=== PATIENT | male | born 1955 | race Caucasian/White ===

== ENCOUNTER → 2018-03-20 13:04 | Outpatient (CLI) | payer OTHER, SELFPAY ==
--- NOTE | 2018-03-20 13:06 | DI.MRI.S_ITS ---
PROCEDURE: MR LOWER LEG LT WO CON COMPARISON: None TECHNIQUE: Axial fat-suppressed proton density scanning was obtained through the left calf in addition to axial T1 scanning, in addition to coronal T1 and STIR imaging bilaterally, and also sagittal T1 and STIR imaging targeted to the left lower extremity from the level to the ankle level. INDICATIONS: Possible calf tear FINDINGS: At the junction of the middle and lower thirds of the posterior medial left calf there is an ovoid fluid collection which shows internal mildly elevated T1 and proton density signal characteristics, without identifiable solid mass. Contrast enhancement was not utilized and therefore the quality of visualization is somewhat limited. This appears to represent a focal hematoma/seroma within the intermuscular fascial plane deep to the medial gastrocnemius, with partial tear of the substance of the muscle inferiorly, but without superior retraction of this portion of the gastrocnemius. There is edema within the medial gastrocnemius and also along the subcutaneous fatty soft tissue of the posterior calf, greater medially than laterally. IMPRESSION: Partial-thickness tear of the inferior margin of the medial gastrocnemius muscle at the left calf, with associated ovoid focal hemorrhagic seroma or hematoma measuring up to 3.6 cm oblique AP, 2.5 cm transverse and up to 8.0 cm craniocaudad. Disruption and retraction of the musculature is not present. No underlying solid mass lesion is found nor is there evidence of osseous injury. Dictated by: Morteza Gresham M.D. on 03/20/2018 at 16:25 Approved by: Morteza Gresham M.D. on 03/20/2018 at 16:33
== END ==
PROVIDERS: PCP Student in an Organized Health Care Education/Training Program; Visit Provider Physician Assistant
DX: S86.112A Strain of other muscle(s) and tendon(s) of posterior muscle group at lower leg level, left leg, initial encounter (principal)
CPT/HCPCS: 73718

== ENCOUNTER → 2018-05-21 15:28 | Outpatient (CLI) | payer OTHER, SELFPAY ==
--- NOTE | 2018-05-21 15:29 | DI.RAD.S_ITS ---
PROCEDURE: XR FOOT LT MIN 3V INDICATIONS: midfoot pain with ambulation TECHNIQUE: 3 views of the foot were acquired. COMPARISON: None. FINDINGS: Bones: No fractures or dislocations. No suspicious bony lesions. The bone mineralization is slightly decreased. There is a small plantar calcaneal spur. There may also be a small Achilles spur involving the calcaneus. There are mild to moderate degenerative changes involving the midfoot and forefoot joints. Bony alignment is within normal limits. Soft tissues: Soft tissues overlying the left foot appear to be grossly within normal limits. IMPRESSION: 1. Osteopenia without acute fracture evident. 2. Mild to moderate degenerative changes of the midfoot and forefoot. 2. Small plantar calcaneal spur. Dictated by: Cuong Warner M.D. on 05/21/2018 at 15:25 Approved by: Cuong Warner M.D. on 05/21/2018 at 15:27
== END ==
PROVIDERS: PCP Student in an Organized Health Care Education/Training Program; Visit Provider Physician Assistant
DX: M79.672 Pain in left foot (principal); M19.072 Primary osteoarthritis, left ankle and foot; M77.32 Calcaneal spur, left foot; M85.872 Other specified disorders of bone density and structure, left ankle and foot
CPT/HCPCS: 73630

== ENCOUNTER 2018-06-11 04:08 | Emergency (ER) | payer OTHER, SELFPAY ==
[2018-06-11 04:12] VITALS: BP 155/105; PULSE 83; RESP 20; TEMP 36.8; O2SAT 97; BMI 30.1
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
[2018-06-11] MEDS: MORPHINE 4 MG/ML INJ IV (04:15)
--- NOTE | 2018-06-11 04:18 | DI.CT.S_ITS ---
PROCEDURE: CT ABDOMEN PELVIS W CON INDICATIONS: left lower quadrant abdominal pain, vomiting, normal Bowel movement, history of leukemia TECHNIQUE: After the administration of intravenous contrast, 5 mm thick sections acquired from the diaphragm to the symphysis. 5 mm coronal and sagittal reformats were acquired. For radiation dose reduction, the following was used: automated exposure control, adjustment of mA and/or kV according to patient size. COMPARISON: [facility], CT, ABDOMEN/PELVIS WITH CONTRAST, 08/08/2015, 11:04. FINDINGS: Image quality: Excellent. ABDOMEN: Lung bases: Bibasilar scarring/atelectasis are seen. Calcified granuloma is noted in posterior medial aspect of right lung base. No pleural effusion or pneumothorax. Heart size is normal. Solid organs: Liver is normal in size and enhancement. Mild hepatic steatosis is seen Gallbladder is within normal limits. Biliary system is non dilated. Pancreas enhances normally. Mild splenomegaly is seen, improved since previous study now measures approximately 14.8 cm in length. No adrenal nodules. Bilateral kidneys are normal in size. Moderate prominence of left renal collecting system and left renal pelvis is seen. Dilatation of left proximal to mid ureter is also noted. There is moderate left perinephric fat stranding. 6 mm calcification is noted in left mid to distal ureter. No right-sided renal stone or ureteral stone. No right-sided hydronephrosis. Peritoneum and bowel: Bowel loops demonstrate normal wall thickness and caliber. No free fluid or air. Small hiatal hernia is seen. Appendix is visualized and is within normal limits. Extensive sigmoid diverticulosis is seen, no CT evidence of acute diverticulitis. No free fluid or free air. Nodes and vessels: No retroperitoneal or mesenteric adenopathy by size criteria. Aorta and inferior vena cava are normal in size. Miscellaneous: No ventral hernias. PELVIS: Genitourinary: Bladder wall thickness is normal. Miscellaneous: No inguinal hernias or adenopathy. Bones: No suspicious bony lesions. No vertebral body compression fractures. IMPRESSION: 1. 6 mm left distal ureteral stone with moderate left-sided hydronephrosis and proximal to mid hydroureter. Mild left perinephric fat stranding. 2. No right-sided renal stone hydronephrosis. 3. Normal appendix. Sigmoid diverticulosis with no CT evidence of acute diverticulitis. No free fluid or free air. Small hiatal hernia. 4. Interval decrease in spleen size with mild splenomegaly on current study. Mild hepatic steatosis. No significant discrepancies. Dictated by: Mandeep Bro M.D. on 06/11/2018 at 8:52 Approved by: Mandeep Bro M.D. on 06/11/2018 at 8:56
[2018-06-11] MEDS: ONDANSETRON 4 MG/2 ML INJ IV (04:30)
[2018-06-11] MEDS: MORPHINE 5 MG/ML INJ 4 MG IV (04:32)
[2018-06-11] MEDS: SODIUM CHLORIDE 0.9% 1,000 ML 1000 ML IV ×2 (04:32→05:50)
--- NOTE | 2018-06-11 04:33 | PC.NURSE ---
No change in first morphine given, provider notified, second morphine order received.
[2018-06-11 04:36] LABS: Add Manual Diff / Slide Review NO; Basophils Percent Auto 0.6 % (0-2); Eosinophils Percent Auto 1.2 % (2-4); Hematocrit 49.5 % (41-53); Hemoglobin 17.4 g/dL (13.5-17.5); Lymphocytes Percent Auto 43.4 % (25-40); Mean Corpuscular HGB Conc 35.1 % (30-36); Mean Corpuscular Hemoglobin 30.9 PG (26-34); Mean Corpuscular Volume 88.2 fL (80-100); Monocytes Percent Auto 8.4 % (3-14); Neutrophils Absolute Auto 3600 /uL (1500-7000); Neutrophils Percent Auto 46.4 % (50-75); Platelet Count 135 X10^3/uL (150-400); Red Blood Cell Count 5.61 X10^6/uL (4.5-5.9); Red Cell Distribution Width 12.8 % (11.6-14.8); White Blood Cell Count 7.8 X10^3/uL (4.5-11.0)
[2018-06-11] MEDS: KETOROLAC 60 MG/2 ML VIAL 30 MG IV (04:38)
[2018-06-11] MEDS: LORazepam 2 MG/ML SYRINGE 0.5 MG IV (04:47)
[2018-06-11 04:53] LABS: Alanine Aminotransferase 26 IU/L (21-72); Albumin 4.7 g/dL (3.5-5.0); Albumin Globulin Ratio 1.8 (1.0-2.8); Alkaline Phosphatase 69 U/L (38-126); Aspartate Aminotransferase 20 IU/L (17-59); BUN Creatinine Ratio 15.4 (6-22); Bilirubin Total 1.3 mg/dL (0.2-1.3); Blood Urea Nitrogen 20 mg/dL (9-20); Calcium 9.2 mg/dL (8.4-10.2); Carbon Dioxide 22 mmol/L (22-32); Chloride 108 mmol/L (98-107); Estimated Glomerular Filt Rate 55.6 mL/min (>60); Globulin 2.6 g/dL (1.7-4.1); Glucose 112 mg/dL (80-110); HEMOLYSIS 23 (0-50); Lipase 76 U/L (23-300); Potassium 3.7 mmol/L (3.4-5.1); Sodium 148 mmol/L (137-145); Total Protein 7.3 g/dL (6.3-8.2)
[2018-06-11] MEDS: HYDROMORPHONE 1 MG INJ IV (05:50)
[2018-06-11] MEDS: TAMSULOSIN 0.4 MG CAPSULE PO (05:50)
[2018-06-11 07:00] VITALS: BP 127/90; PULSE 72; RESP 18; O2SAT 99
[2018-06-11 07:42] LABS: Bacteria Urine None Seen
[2018-06-11 07:51] LABS: Culture Indicated Urine Cult Not Indicated; RBC Urine 5-10/HPF (0-5/HPF); WBC Urine 0-1/HPF (0-5/HPF)
[2018-06-11] MEDS: HYDROMORPHONE 1 MG INJ 0.5 MG IV (08:01)
[2018-06-11 08:03] VITALS: BP 137/94; PULSE 89; RESP 18; O2SAT 94
[2018-06-11] MEDS: HYDROCODONE/ACET 5/325 PREPACK 1 BOTTLE MISC (08:30)
[2018-06-11] MEDS: ONDANSETRON 4 MG ODT PREPACK 1 BOTTLE MISC (08:30)
--- NOTE | 2018-06-11 12:50 | PC.NURSE ---
Family returned to ED requesting scripts be called into [facility] . Verbalized understanding that narcotic script could not be called in. Called in both zofran and flomax prescriptions as requested.
== END 2018-06-11 08:33 | disposition home or self-care (01) ==
PROVIDERS: Emergency Medicine; Emergency Provider Emergency Medicine; PCP Student in an Organized Health Care Education/Training Program
DX: N20.0 Calculus of kidney (principal); R10.9 Unspecified abdominal pain
CPT/HCPCS: 36591; 51798; 74177; 80053; 81003; 81015; 83690; 85025; 96361; 96374; 96375; 96376; 99283; 99285; J1170; J1885; J2060; J2270; J2405; Q9967

== ENCOUNTER 2019-05-21 11:34 | Emergency (ER) | payer MEDICARE, BC, SELFPAY ==
[2019-05-21 11:47] VITALS: BP 144/95; PULSE 81; RESP 17; TEMP 36.8; O2SAT 94; BMI 28.7
--- NOTE | 2019-05-21 11:48 | ED_ITS ---
HPI - General Adult General Chief complaint: Altered Mental Status Stated complaint: Confusion Time Seen by Provider: 05/21/19 11:38 Source: patient and EMS Mode of arrival: EMS Limitations: no limitations History of Present Illness HPI narrative: Patient comes emergency department complaining of feeling confused today. He states that he went to the pool as usual this morning and after swimming, he felt as though he was forgetting things that he should remember, such as what he was supposed to do today. Patient states that he did not sleep almost all last night, though he usually sleeps well. He is currently being treated for CLL, but states that this has actually been fairly well controlled and he is not on any new agents. Patient does not use any drugs and drinks a small amount of alcohol only occasionally. Patient denies any recent illness. No cough, shortness of breath, chest pain, or fever. No focal neurologic deficits otherwise. No other complaints at this time. Related Data Home Medications Medication Instructions Recorded Confirmed acalabrutinib 100 mg capsule 100 mg PO Q12H 03/13/18 05/21/19 Vitamin D3 1 cap PO DAILY 05/21/19 escitalopram oxalate 5 mg PO QPM 05/21/19 escitalopram oxalate 10 mg PO QAM 05/21/19 Allergies Allergy/AdvReac Type Severity Reaction Status Date / Time No Known Drug Allergies Allergy Verified 09/06/18 16:07 Review of Systems Constitutional Constitutional: Denies chills, Denies fatigue, Denies fever(s), Denies frequent falls, Denies lethargy and Denies weakness Eyes Eyes: Denies change in vision, Denies eye discharge, Denies irritation and Denies loss of vision ENT Ears, Nose, Mouth, and Throat: Denies change in voice, Denies dizziness, Denies neck pain, Denies sore throat and Denies throat swelling Cardiovascular Cardiovascular: Denies chest pain, Denies irregular heart rhythm, Denies lightheadedness, Denies palpitations, Denies dyspnea, Denies dyspnea on exertion and Denies orthopnea Respiratory Respiratory: Denies cough, Denies dyspnea, Denies dyspnea on exertion and Denies wheezing Gastrointestinal Gastrointestinal: Denies abdominal pain, Denies change in bowel habits, Denies diarrhea, Denies nausea and Denies vomiting Genitourinary Genitourinary: Denies hematuria, Denies flank pain, Denies urinary incontinence and Denies urinary urgency Musculoskeletal Musculoskeletal: Denies back pain, Denies muscle weakness, Denies neck pain, Denies numbness and Denies tingling Integumentary/Breasts Skin/Breast: Denies pruritus, Denies erythema, Denies rash and Denies wounds Neurologic Neurologic: Denies behavioral changes, Reports confusion, Denies dizziness, Brandon es frequent falls, Denies loss of vision, Denies numbness, Denies tingling and Denies weakness Psychiatric Psychiatric: Denies anxiety, Denies behavioral changes, Reports confusion, Denies depression, Denies homicidal ideation and Denies suicidal ideation Endocrine Endocrine: Denies fatigue, Denies flushing and Denies palpitations Hematologic/Lymphatic Hematologic/Lymphatic: Denies easy bruising Allergic/Immunologic Allergic/Immunologic: Denies urticaria, Denies throat swelling and Denies wheezing Patient History Medical History Allergic rhinitis (Chronic) Anxiety (Chronic) Arm fracture, right (Resolved ~1985) CLL (chronic lymphocytic leukemia) (Chronic ~05/2010) Colon polyps (Resolved) Knee pain (Resolved 04/2012) Low testosterone (Chronic) Obstructive sleep apnea (Chronic) Osteopenia (Chronic) Squamous cell carcinoma (Resolved) Surgical History Hx of colonoscopy with polypectomy (Resolved 07/2013) Hx of squamous cell carcinoma excision (Resolved) Family History Father Cancer Mother CLL (chronic lymphocytic leukemia) Social History Smoking Status: Never smoker alcohol intake frequency: 0-2 drinks per day Substance Use Type: does not use Exam Initial Vital Signs Initial Vital Signs: Vital Signs Temperature 98.3 F 05/21/19 11:47 Pulse Rate 81 05/21/19 11:47 Respiratory Rate 17 05/21/19 11:47 Blood Pressure 144/95 H 05/21/19 11:47 Pulse Oximetry 94 05/21/19 11:47 Const General: cooperative and well developed Nutritional Appearance: well nourished Orientation: alert, awake, oriented x3 and not confused HENMT Head: normocephalic and atraumatic Ears: external ears normal Nose: external nose normal and No nasal discharge Face and sinus: face symmetric and No dry mucous membranes Mouth: oral mucosae normal and moist mucous membranes Teeth and gingiva: dentition normal Eyes General: appearance normal, both eyes and all related structures Eyelids: eyelids normal Conjunctivae: conjunctivae normal Sclera: sclerae normal Pupils: PERRL EOM: EOM intact bilaterally Neck Neck: normal visual inspection, trachea midline, No lymphadenopathy, No midline deformity and No JVD Lymphatic: No lymphedema Chest Chest: normal inspection of the chest Resp Effort & Inspection: normal respiratory effort, able to speak in complete sentences, no respiratory distress and no use of accessory muscles Auscultation: clear to auscultation bilaterally, no rales, no rhonchi and no wheezes Cardio Rate: regular rate Rhythm: regular rhythm Heart Sounds: no click, no gallops, no murmurs and no rubs Pulses: normal peripheral pulses GI Inspection: non-distended Palpation: soft, no hepatosplenomegaly, No guarding, No pulsatile mass and No tender Auscultation: normal bowel sounds Back/Spine/Pelvis Back: No CVA tenderness Cervical Spine: cervical ROM normal and No pain with cervical ROM Thoracic/Lumbar Spine: thoracic and lumbar spine normal to inspection Skin General: no rashes or lesions noted, No jaundice and No petechiae Neuro General: alert, awake, oriented (Person and place; can't remember month), gait normal and no focal motor deficits Cranial Nerves: CN's II-XI intact bilaterally Speech: speech normal Gait: normal gait Motor: muscle tone normal throughout and strength 5/5 throughout Sensory Exam: no sensory deficits noted Other: Patient talks very easily and coherently with clear speech. He expresses thoughts that make sense, but repeatedly states that he ?just cannot remember? things that he should remember. Extrem General: full ROM, no clubbing, cyanosis or edema, no pedal edema and no calf tenderness Psych Appearance: well kempt Mental Status: mental status grossly normal Attitude: cooperative Thought Content: normal and suicidality Judgment: judgment good Course Course Course Narrative: Patient was worked up with labs, EKG, and CT scan of the head, all of which were unremarkable. He was given a L of IV fluid and was sent for an MRI of the brain which was also unremarkable. the patient did eat some food in the emergency department and felt little better. I have discussed with the patient and his family that if he does not get good sleep at night, he should scale his workout down so it is not so taxing, and be sure to get a good breakfast. However, the patient's family has also mention that patient has had ongoing memory issues, and I have advised that it may be a good idea to have him see a neurologist. The patient's daughter states she has him scheduled to see a memory specialist in a couple of weeks and I think this is a very good idea to help get to the bottom of the memory issues and confusion issues he has been having. At this time however, the patient is stable and no emergent condition has been identified, and he is stable for discharge home with his family. Orders Ordered: Discontinued Medications Sodium Chloride (Normal Saline 0.9%) 1,000 mls @ 1,000 mls/hr IV BOLUS ONE Stop: 05/21/19 12:46 Last Infusion: 05/21/19 13:29 Dose: 0 mls/hr Documented by: REBECCAARRINGDAY Admin: 05/21/19 12:17 Dose: 1,000 mls/hr Documented by: SHANNA Medical Decision Making Medical Records Medical records reviewed: Yes I reviewed the patient's medical records. Lab Data Lab results reviewed: Yes I reviewed the patient's lab results. Result diagrams: 05/21/19 11:45 05/21/19 11:45 Labs: Lab Results 05/21/19 05/21/19 05/21/19 Range/Units 11:40 11:45 11:45 WBC 6.9 (4.5-11.0) X10^3/uL RBC 5.46 (4.5-5.9) X10^6/uL Hgb 16.8 (13.5-17.5) g/dL Hct 48.7 (41-53) % MCV 89.3 (80-100) fL MCH 30.8 (26-34) PG MCHC 34.5 (30-36) % RDW 13.0 (11.6-14.8) % Plt Count 129 L (150-400) X10^3/uL Neut % (Auto) Not Reportable Lymph % (Auto) Not Reportable [place] % (Auto) Not Reportable Eos % (Auto) Not Reportable Baso % (Auto) Not Reportable Lymph # (Auto) Not Reportable [place] # (Auto) Not Reportable Baso # (Auto) Not Reportable Total Counted 100 Seg Neutrophils % 47.0 (38-70) % Band Neutrophils % 1.0 L (3-7) % Lymphocytes % (Manual) 37.0 (25-45) % Atypical Lymphs % 4.0 H ( - 0) % Monocytes % (Manual) 8.0 (2-11) % Eosinophils % (Manual) 3.0 (2-4) % Neutrophils # (Manual) 3312 (4955-8320) /uL RBC Morphology Normal morphology Sodium 141 (137-145) mmol/L Potassium 3.9 (3.4-5.1) mmol/L Chloride 108 H (98-107) mmol/L Carbon Dioxide 24 (22-32) mmol/L BUN 19 (9-20) mg/dL Creatinine 1.10 (0.66-1.25) mg/dL Estimated GFR > 60.0 (>60) mL/min BUN/Creatinine Ratio 17.3 (6-22) Glucose 103 (80-110) mg/dL Calcium 9.6 (8.4-10.2) mg/dL Total Bilirubin 0.8 (0.2-1.3) mg/dL AST 27 (17-59) IU/L ALT 19 (<50) IU/L Alkaline Phosphatase 89 (38-126) U/L Total Creatine Kinase 134 (55-170) U/L CK-MB (CK-2) 1.40 (<2.37) ng/mL CK-MB (CK-2) Rel Index 1.0 L (1.5-5.0) % Troponin I < 0.012 (0.01-0.034) ng/mL Total Protein 7.4 (6.3-8.2) g/dL Albumin 4.8 (3.5-5.0) g/dL Globulin 2.6 (1.7-4.1) g/dL Albumin/Globulin Ratio 1.8 (1.0-2.8) TSH 3.15 (0.47-4.68) uIU/mL Imaging Data CT scan - head: Radiologist's impression: PROCEDURE: CT HEAD/BRAIN WO CON INDICATIONS: confusion TECHNIQUE: Noncontrast 4.5 mm thick angled axial sections acquired from the foramen magnum to the vertex, with coronal and sagittal reformats. For radiation dose reduction, the following was used: automated exposure control, adjustment of mA and/or kV according to patient size. COMPARISON: [facility], MR, BRAIN WITHOUT CONTRAST, 08/09/2010, 9:16. FINDINGS: Image quality: Excellent. CSF spaces: Basal cisterns are patent. No extra-axial fluid collections. The ventricles are symmetric in size and shape. Brain: No intracranial bleeds or masses. There is cerebral volume loss for age, with resultant ventricular and sulcal prominence. There are periventricular and deep white matter chronic small vessel ischemic changes. There is intracranial internal carotid artery atherosclerosis. Skull and face: Calvarium and visualized facial bones appear intact, without suspicious lesions. Sinuses: Visualized sinuses and mastoids are clear. IMPRESSION: 1. No acute intracranial abnormalities. 2. Cerebral volume loss and chronic microvascular ischemic changes. Dictated by: Forrest Perez M.D. on 05/21/2019 at 12:15 Approved by: Forrest Perez M.D. on 05/21/2019 at 12:18 MRI - head: Radiologist's impression: PROCEDURE: MR HEAD/BRAIN WO CON INDICATIONS: possible stroke TECHNIQUE: Noncontrast axial T1 spin echo, axial T2 fast spin echo, sagittal and axial FLAIR, coronal T2 fast spin echo, axial gradient echo, axial diffusion and ADC through the brain. COMPARISON: [facility], CT, CT HEAD/BRAIN WO CON, 05/21/2019, 11:55. FINDINGS: Image quality: Excellent. CSF Spaces: Basal cisterns are patent. No extra-axial fluid collections. Ventricles are normal in size and shape. Brain: No intracranial masses or hemorrhage. [place]/white matter interface is normal. Brainstem appears normal. There is mild, diffuse cerebral white loss. There are mild periventricular and subcortical white matter chronic microvascular ischemic changes. Diffusion-weighted images demonstrate no acute ischemic insult. No chronic ischemic insults. No abnormal GRE weighted artifact identified in the brain parenchyma. Normal intravascular flow voids are present. Skull and face: Calvarium has normal marrow signal. Orbits appear normal. Sinuses: Mucous retention cyst versus polyp noted in the right maxillary sinus. The mastoids are clear. IMPRESSION: 1. No acute intracranial disease process. 2. No areas of acute or chronic infarction. 3. No cranial hemorrhage. 4. No abnormal intracranial mass or mass effect. 5. Mild, diffuse cerebral volume loss. 6. Mild periventricular and subcortical white matter chronic microvascular ischemic change. Dictated by: Rebecca Mccann MD, PhD on 05/21/2019 at 15:00 Approved by: Rebecca Mccann MD, PhD on 05/21/2019 at 15:13 ECG Data Attestation: I personally reviewed and interpreted this ECG as follows: (See below) Interpretation: Twelve lead EKG performed May 21, 2019 at 11:56 a.m., as follows: Regular ventricular rhythm with a rate of 81 beats per minute OR interval 192 milliseconds QRS duration 104 millisecond QTC interval [address] T wave changes Interpretation: Normal sinus rhythm; pattern consistent with pulmonary disease; left anterior fascicular block; minimal voltage criteria for LVH consider normal variant; no signs of acute ischemia; abnormal EKG as interpreted by ED MD. Discharge Plan Departure Patient Disposition: Home Clinical Impression: Acute confusion Insomnia Qualifiers: Insomnia type: unspecified Qualified Code(s): G47.00 - Insomnia, unspecified Discharge Date/Time: 05/21/19 16:37 Instructions: DI for Altered Mental Status Activity Restrictions/Additional Instructions: Your labs, overall, look good. Your CT scan and MRI do not show evidence of an acute stroke or other brain condition. there is evidence of chronic changes to your brain matter that are most likely due to plaque in the tiny blood vessels of your brain. Please be sure to get plenty of sleep and consider a more relaxed workout if you have not slept well the night before. Please also be sure to get a good meal 1st thing in the morning. There is no evidence of an emergent condition causing your symptoms today. If the symptoms continue, please follow-up with your primary care physician. Prescriptions: No Action acalabrutinib 100 mg capsule 100 mg PO Q12H RF: 0 escitalopram oxalate 10 mg tablet 10 mg PO QAM RF: 0 escitalopram oxalate 10 mg tablet 5 mg PO QPM RF: 0 Vitamin D3 1 cap PO DAILY RF: 0
[2019-05-21 11:54] LABS: Hematocrit 48.7 % (41-53); Hemoglobin 16.8 g/dL (13.5-17.5); Mean Corpuscular HGB Conc 34.5 % (30-36); Mean Corpuscular Hemoglobin 30.8 PG (26-34); Mean Corpuscular Volume 89.3 fL (80-100); Platelet Count 129 X10^3/uL (150-400); Red Blood Cell Count 5.46 X10^6/uL (4.5-5.9); White Blood Cell Count 6.9 X10^3/uL (4.5-11.0)
[2019-05-21 11:59] LABS: Add Manual Diff / Slide Review YES; Alanine Aminotransferase 19 IU/L (<50); Albumin 4.8 g/dL (3.5-5.0); Albumin Globulin Ratio 1.8 (1.0-2.8); Alkaline Phosphatase 89 U/L (38-126); Aspartate Aminotransferase 27 IU/L (17-59); BUN Creatinine Ratio 17.3 (6-22); Bilirubin Total 0.8 mg/dL (0.2-1.3); Blood Urea Nitrogen 19 mg/dL (9-20); Calcium 9.6 mg/dL (8.4-10.2); Carbon Dioxide 24 mmol/L (22-32); Chloride 108 mmol/L (98-107); Creatine Kinase 134 U/L (55-170); Estimated Glomerular Filt Rate > 60.0 mL/min (>60); Globulin 2.6 g/dL (1.7-4.1); Glucose 103 mg/dL (80-110); HEMOLYSIS < 15 (0-50); Potassium 3.9 mmol/L (3.4-5.1); Sodium 141 mmol/L (137-145); Total Protein 7.4 g/dL (6.3-8.2)
[2019-05-21 12:10] VITALS: BP 150/91; PULSE 73; RESP 16; O2SAT 94
[2019-05-21 12:10] LABS: Troponin I < 0.012 ng/mL (0.01-0.034)
[2019-05-21] MEDS: SODIUM CHLORIDE 0.9% 1,000 ML 1000 ML IV (12:17)
[2019-05-21 12:18] LABS: Neutrophils Absolute Manual 3312 /uL (3000-5900); Total Cells Counted 100
[2019-05-21 12:19] LABS: RBC Morphology Normal Morphology
[2019-05-21 13:00] VITALS: BP 148/72; PULSE 59; RESP 17; O2SAT 98
[2019-05-21 13:35] VITALS: BP 150/90; PULSE 59; RESP 17; O2SAT 98
--- NOTE | 2019-05-21 13:54 | DI.MRI.S_ITS ---
PROCEDURE: MR HEAD/BRAIN WO CON INDICATIONS: possible stroke TECHNIQUE: Noncontrast axial T1 spin echo, axial T2 fast spin echo, sagittal and axial FLAIR, coronal T2 fast spin echo, axial gradient echo, axial diffusion and ADC through the brain. COMPARISON: [facility], CT, CT HEAD/BRAIN WO CON, 05/21/2019, 11:55. FINDINGS: Image quality: Excellent. CSF Spaces: Basal cisterns are patent. No extra-axial fluid collections. Ventricles are normal in size and shape. Brain: No intracranial masses or hemorrhage. Martinez/white matter interface is normal. Brainstem appears normal. There is mild, diffuse cerebral white loss. There are mild periventricular and subcortical white matter chronic microvascular ischemic changes. Diffusion-weighted images demonstrate no acute ischemic insult. No chronic ischemic insults. No abnormal GRE weighted artifact identified in the brain parenchyma. Normal intravascular flow voids are present. Skull and face: Calvarium has normal marrow signal. Orbits appear normal. Sinuses: Mucous retention cyst versus polyp noted in the right maxillary sinus. The mastoids are clear. IMPRESSION: 1. No acute intracranial disease process. 2. No areas of acute or chronic infarction. 3. No cranial hemorrhage. 4. No abnormal intracranial mass or mass effect. 5. Mild, diffuse cerebral volume loss. 6. Mild periventricular and subcortical white matter chronic microvascular ischemic change. Dictated by: Rebecca Mccann MD, PhD on 05/21/2019 at 15:00 Approved by: Rebecca Mccann MD, PhD on 05/21/2019 at 15:13
[2019-05-21 14:00] VITALS: BP 123/57; PULSE 61; RESP 19; O2SAT 97
[2019-05-21 15:10] VITALS: BP 128/81; PULSE 83; RESP 21; O2SAT 95
[2019-05-21 15:10] LABS: Thyroid Stimulating Hormone 3.15 uIU/mL (0.47-4.68)
--- NOTE | 2019-05-21 16:24 | PC.NURSE ---
pt awake and alert, speech pattern is less rambling than at arrival, word retrieval is very good but patient still has trouble identifying his age and today's date
== END 2019-05-21 16:37 | disposition home or self-care (01) ==
PROVIDERS: Emergency Provider Emergency Medicine
DX: R41.82 Altered mental status, unspecified (principal); G47.00 Insomnia, unspecified
CPT/HCPCS: 36415; 70450; 70551; 80053; 82550; 82553; 84443; 84484; 85025; 93005; 96360; 99283; 99285

== ENCOUNTER → 2019-05-22 11:34 | Outpatient (CLI) | payer MEDICARE, BC, SELFPAY ==
[2019-05-22 12:38] LABS: Appearance Urine UA CLEAR; Bilirubin Urine UA NEGATIVE (NEGATIVE); Color Urine UA YELLOW; Glucose Urine UA NEGATIVE (Negative); Ketones Urine UA NEGATIVE (NEGATIVE); Leukocyte Esterase Urine UA NEGATIVE (NEGATIVE); Nitrite Urine UA NEGATIVE (Negative); Occult Blood Urine UA NEGATIVE (Negative); Protein Urine UA NEGATIVE (Negative); Specific Gravity Urine UA 1.015 (1.000-1.035); Urobilinogen Urine UA 0.2 E.U./dL (0.2); pH Urine UA 6.5 (4.5-8.0)
[2019-05-22 12:51] LABS: Amorphous Sediment Urine 1+; Bacteria Urine Occasional (0-1); Culture Indicated Urine Cult Not Indicated; RBC Urine 0-1/HPF (0-5/HPF); Squamous Epithelial Cell Urine 0-1 /HPF (0-5/HPF); WBC Urine 0-1/HPF (0-5/HPF)
== END ==
PROVIDERS: Visit Provider Family Medicine
DX: R41.0 Disorientation, unspecified (principal)
CPT/HCPCS: 81001

== ENCOUNTER 2020-03-28 21:35 | Emergency (ER) | payer MEDICARE, BC, SELFPAY ==
[2020-03-28 21:52] VITALS: BP 153/87; PULSE 69; RESP 18; TEMP 36.8; O2SAT 97; BMI 29.7
--- NOTE | 2020-03-28 21:57 | DI.CT.S_ITS ---
PROCEDURE: CT KIDNEY URETER BLADDER (KUB) INDICATIONS: LLQ/flank pain. ? kidney stone TECHNIQUE: Noncontrast 5 mm thick sections acquired from the diaphragms to the symphysis. 5 mm thick coronal and sagittal reformats were then performed. For radiation dose reduction, the following was used: automated exposure control, adjustment of mA and/or kV according to patient size. COMPARISON: [facility], CT, ABDOMEN/PELVIS WITH CONTRAST, 08/08/2015, 11:04. CT, CHEST/ABD/PEL WITH CONTRAST, 03/04/2013, 7:19. [facility], CT, CT ABDOMEN PELVIS W CON, 06/11/2018, 4:23. FINDINGS: Image quality: Excellent. Lung bases: Lung bases are clear. Heart size is normal. Urinary system: There is a 2 mm stone in the inferior pole of the left kidney. There is mild perinephric stranding left kidney. Both kidneys are normal in size. No hydronephrosis. Both ureters appear non-dilated throughout their expected courses. Bladder wall thickness is normal; no calcified bladder stones. Other solid organs: Mild hepatic steatosis. Liver is normal in size. Gallbladder is normal. Pancreas is normal in contours. Spleen is mildly enlarged measuring 13.3 cm in length. No adrenal nodules. Peritoneum and bowel: Unenhanced bowel loops demonstrate normal wall thickness and caliber. There are scattered colonic diverticula. No free fluid or air. Nodes and vessels: No retroperitoneal or mesenteric adenopathy by size criteria. Aorta and inferior vena cava are normal in caliber. Abdominal wall: There is a tiny fat containing umbilical hernia. Pelvis: No free pelvic fluid. No inguinal hernias or adenopathy. Bones: No suspicious bony lesions. No vertebral body compression fractures. Mild degenerative changes in lumbar spine. IMPRESSION: 1. A 2 mm nonobstructing stone in left kidney. No hydronephrosis. 2. Diverticulosis without acute diverticulitis. 3. Mild splenomegaly. No significant discrepancy with the city editor radiology preliminary report. Dictated by: Forrest Perez M.D. on 03/29/2020 at 8:39 Approved by: Forrest Perez M.D. on 03/29/2020 at 8:45
[2020-03-28 22:08] LABS: Add Manual Diff / Slide Review NO; Basophils Absolute Auto 100 /uL (0-100); Eosinophils Absolute Auto 100 /uL (0-450); Eosinophils Percent Auto 2.1 % (2-4); Hematocrit 45.1 % (41-53); Hemoglobin 15.7 g/dL (13.5-17.5); Lymphocytes Absolute Auto 1700 /uL (1100-4500); Mean Corpuscular HGB Conc 34.9 % (30-36); Mean Corpuscular Hemoglobin 31.3 PG (26-34); Mean Corpuscular Volume 89.9 fL (80-100); Monocytes Absolute Auto 500 /uL (0-900); Monocytes Percent Auto 7.2 % (3-14); Neutrophils Absolute Auto 4000 /uL (1500-7000); Neutrophils Percent Auto 62.7 % (50-75); Platelet Count 128 X10^3/uL (150-400); Red Blood Cell Count 5.01 X10^6/uL (4.5-5.9); Red Cell Distribution Width 12.7 % (11.6-14.8); White Blood Cell Count 6.4 X10^3/uL (4.5-11.0)
[2020-03-28 22:19] LABS: Alanine Aminotransferase 28 IU/L (<50); Albumin 4.3 g/dL (3.5-5.0); Albumin Globulin Ratio 1.7 (1.0-2.8); Alkaline Phosphatase 77 U/L (38-126); Aspartate Aminotransferase 32 IU/L (17-59); BUN Creatinine Ratio 19.6 (6-22); Bilirubin Total 0.6 mg/dL (0.2-1.3); Blood Urea Nitrogen 22 mg/dL (9-20); Calcium 9.4 mg/dL (8.4-10.2); Carbon Dioxide 27 mmol/L (22-32); Chloride 107 mmol/L (98-107); Estimated Glomerular Filt Rate > 60.0 mL/min (>60); Globulin 2.6 g/dL (1.7-4.1); Glucose 100 mg/dL (80-110); HEMOLYSIS 15 (0-50); Lipase 101 U/L (23-300); Potassium 3.8 mmol/L (3.4-5.1); Sodium 140 mmol/L (137-145); Total Protein 6.9 g/dL (6.3-8.2)
[2020-03-28] MEDS: SODIUM CHLORIDE 0.9% 1,000 ML 1000 ML IV (22:20)
[2020-03-28] MEDS: KETOROLAC 60 MG/2 ML VIAL 15 MG IV (22:20)
[2020-03-28 22:28] VITALS: BP 141/79; PULSE 66; RESP 16; O2SAT 94
[2020-03-28 23:30] VITALS: BP 128/76; PULSE 65; RESP 16; O2SAT 95
--- NOTE | 2020-03-29 00:13 | ED.ABDPAIN ---
HPI - Abdominal Pain General Chief Complaint: Abdominal Pain Stated Complaint: lwr abdominal pain Time Seen by Provider: 03/28/20 21:46 Source: patient Mode of arrival: Wheelchair Limitations: no limitations History of Present Illness HPI narrative: 65-year-old gentleman with a history of CLL and prior kidney stone requiring intervention presents with 2 hours of left lower quadrant pain radiating from the flank into his pelvis. He notes that he has felt well all day he was active all day, doing quite a bit of lifting without any pain or tenderness. Noted some diarrhea yesterday which is not uncommon for him. He has not noticed any hematuria but does note that the pain he is experiencing the left lower quadrant he is very similar to the pain he experienced with his original kidney stone. Related Data Home Medications Medication Instructions Recorded Confirmed acalabrutinib 100 mg capsule 100 mg PO Q12H 03/13/18 05/21/19 Vitamin D3 1 cap PO DAILY 05/21/19 escitalopram oxalate 10 mg PO QAM 05/21/19 trazodone 50 mg tablet 50 mg PO BEDTIME PRN 12/31/19 12/31/19 Allergies Allergy/AdvReac Type Severity Reaction Status Date / Time No Known Drug Allergies Allergy Verified 09/06/18 16:07 Review of Systems Review of Systems Narrative: Pertinent positive and negative findings as per HPI Remainder of review of systems is otherwise unremarkable for Constitutional: Fevers, chills, weakness ENT: No sore throat, neck pain, ear pain CV: Chest pain, palpitations, dyspnea on exertion Respiratory: Cough, wheeze, dyspnea MS: Muscle weakness, numbness, joint swelling or warmth Skin: Rashes, nonhealing lesions Neuro: Syncope, dizziness, tingling Patient History Medical History Allergic rhinitis (Chronic) Anxiety (Chronic) Arm fracture, right (Resolved ~1985) CLL (chronic lymphocytic leukemia) (Chronic ~05/2010) Colon polyps (Resolved) Kidney stone (Acute) Knee pain (Resolved 04/2012) Low testosterone (Chronic) Obstructive sleep apnea (Chronic) Osteopenia (Chronic) Squamous cell carcinoma (Resolved) Surgical History Hx of colonoscopy with polypectomy (Resolved 07/2013) Hx of squamous cell carcinoma excision (Resolved) Family History Father Cancer Mother CLL (chronic lymphocytic leukemia) Social History Smoking Status: Never smoker Smoking Status: Never smoker alcohol intake frequency: 0-2 drinks per day Alcohol type: beer Substance Use Type: does not use Exam Narrative Exam Narrative: General: Healthy appearing, in no acute distress. Able to give a complete and coherent history. Well-nourished well-developed HEENT: Moist mucous membranes, normal sclera with reactive pupils, Neck: supple Respiratory: Lungs are clear to auscultation, no wheezing no rales no rhonchi. Full and symmetrical air movement Cardiac: Regular rate and rhythm no murmurs no bruits Abdomen: Soft nontender good bowel tones, no flank pain Skin: Warm and dry, no rashes Neurologic: Grossly neurologically intact with no obvious asymmetries or abnormalities Extremities: No trauma, well perfused Psych: Cooperative, appropriate insight and affect Initial Vital Signs Initial Vital Signs: Vital Signs Temperature 98.3 F 03/28/20 21:52 Pulse Rate 69 03/28/20 21:52 Respiratory Rate 18 03/28/20 21:52 Blood Pressure 153/87 H 03/28/20 21:52 Pulse Oximetry 97 03/28/20 21:52 Course Orders Ordered: ED Orders 03/28/20 21:57 CT kidney ureter bladder (KUB) Stat 03/28/20 22:00 Complete Blood Count AUTO DIFF Stat Comprehensive Metabolic Panel Stat Lipase Stat Discontinued Medications Sodium Chloride (Normal Saline 0.9%) 1,000 mls @ 1,000 mls/hr IV BOLUS ONE Stop: 03/28/20 22:55 Last Infusion: 03/28/20 23:07 Dose: 0 mls/hr Documented by: Admin: 03/28/20 22:20 Dose: 1,000 mls/hr Documented by: DIAMOND Ketorolac Tromethamine (Toradol) 15 mg IV NOW ONE Stop: 03/28/20 21:57 Last Admin: 03/28/20 22:20 Dose: 15 mg Documented by: DIAMOND Vital Signs Vital signs: Vital Signs - 8 hr 03/28/20 21:52 Temperature 98.3 F Pulse Rate 69 Respiratory Rate 18 Blood Pressure 153/87 H Pulse Oximetry 97 MDM - Abdominal Pain Medical Records Attestation: I reviewed the patient's medical records. Lab Data Attestation: I reviewed the patient's lab results. Result diagrams: 03/28/20 22:00 03/28/20 22:00 Labs: Lab Results 03/28/20 03/28/20 Range/Units 22:00 22:00 WBC 6.4 (4.5-11.0) X10^3/uL RBC 5.01 (4.5-5.9) X10^6/uL Hgb 15.7 (13.5-17.5) g/dL Hct 45.1 (41-53) % MCV 89.9 (80-100) fL MCH 31.3 (26-34) PG MCHC 34.9 (30-36) % RDW 12.7 (11.6-14.8) % Plt Count 128 L (150-400) X10^3/uL Neut % (Auto) 62.7 (50-75) % Lymph % (Auto) 27.0 (25-40) % [place] % (Auto) 7.2 (3-14) % Eos % (Auto) 2.1 (2-4) % Baso % (Auto) 1.0 (0-2) % Neut # (Auto) 4000 (4238-5006) /uL Lymph # (Auto) 1700 (4300-2504) /uL [place] # (Auto) 500 (0-900) /uL Eos # (Auto) 100 (0-450) /uL Baso # (Auto) 100 (0-100) /uL Sodium 140 (137-145) mmol/L Potassium 3.8 (3.4-5.1) mmol/L Chloride 107 (98-107) mmol/L Carbon Dioxide 27 (22-32) mmol/L BUN 22 H (9-20) mg/dL Creatinine 1.12 (0.66-1.25) mg/dL Estimated GFR > 60.0 (>60) mL/min BUN/Creatinine Ratio 19.6 (6-22) Glucose 100 (80-110) mg/dL Calcium 9.4 (8.4-10.2) mg/dL Total Bilirubin 0.6 (0.2-1.3) mg/dL AST 32 (17-59) IU/L ALT 28 (<50) IU/L Alkaline Phosphatase 77 (38-126) U/L Total Protein 6.9 (6.3-8.2) g/dL Albumin 4.3 (3.5-5.0) g/dL Globulin 2.6 (1.7-4.1) g/dL Albumin/Globulin Ratio 1.7 (1.0-2.8) Lipase 101 (23-300) U/L Point of care testing: Urine Dip Bedside Urine Glucose Negative Bedside Urine Bilirubin - Negative Bedside Urine Ketone - Negative Urine Specific [place] 1.025 Bedside Urine Occult Blood - Negative Bedside Urine Protein - Negative Bedside Urine Urobilinogen - Negative Bedside Urine Nitrite - Negative Bedside Urine Leukocytes - Negative Esterase MDM Narrative Medical decision making narrative: Labs in urine or reassuring. CT scan shows nephrolithiasis in the left kidney but no hydronephrosis. No evidence of diverticulitis or masses, urinary tract infection is not identified. Patient is feeling well after Toradol. Most likely diagnosis at this time is musculoskeletal pain resolved with Toradol. Patient is safe for home discharge Discharge Plan Departure Patient Disposition: Home Clinical Impression: Kidney stone, Acute flank pain Instructions: DI for Kidney Stones Activity Restrictions/Additional Instructions: Thank you for coming in today You do have a 2 mm kidney stone that is not causing any acute pain or problems. Is still in your kidney and there is no evidence of a stone stuck and the ureter (the tube running from the kidneys to the bladder). It is possible that you had some very tiny kidney stones or gravel that you passed successfully that we see no evidence of on the CT scan. It is also entirely possible that the pain that you are experiencing was more musculoskeletal which is why the Toradol that you are given with so effective. At this point your pain-free and I have found no other evidence of infection, diverticulitis, masses tumors or alternate explanation for your pain. It is safe for you to go home. If you have worsening symptoms you are welcome to return and I am happy to re-evaluate. Prescriptions: No Action acalabrutinib 100 mg capsule 100 mg PO Q12H RF: 0 escitalopram oxalate 10 mg tablet 10 mg PO QAM RF: 0 Vitamin D3 1 cap PO DAILY RF: 0 trazodone 50 mg tablet 50 mg PO BEDTIME PRNRF: 0 Referrals: Carrie Garduno, DO [Primary Care Provider] -
[2020-03-29 00:30] VITALS: BP 135/76; PULSE 65; RESP 16; O2SAT 96
== END 2020-03-29 00:44 | disposition home or self-care (01) ==
PROVIDERS: Emergency Provider Emergency Medicine; PCP Family Medicine
DX: N20.0 Calculus of kidney (principal); Z87.442 Personal history of urinary calculi; R19.7 Diarrhea, unspecified
CPT/HCPCS: 36415; 74176; 80053; 81003; 83690; 85025; 96361; 96374; 99284; J1885

== ENCOUNTER → 2020-04-10 15:07 | Outpatient (CLI) | payer MEDICARE, BC, SELFPAY ==
[2020-04-12 02:12] LABS: COVID19 Sendout Not Detected (Not Detect)
== END ==
PROVIDERS: PCP Family Medicine; Visit Provider Student in an Organized Health Care Education/Training Program
DX: Z11.59 Encounter for screening for other viral diseases (principal)
CPT/HCPCS: 87635

== ENCOUNTER 2020-04-13 07:05 | Day surgery (SDC) | payer MEDICARE, BC, SELFPAY ==
[2020-04-13 07:25] VITALS: BP 119/80; PULSE 72; RESP 15; TEMP 36.5; O2SAT 96; BMI 30.1
[2020-04-13] MEDS: PROPARACAINE 0.5% OPHTH SOL 2 DROPS EYE-OP (07:37)
[2020-04-13] MEDS: CATARACT EYE COMPOUND (10 DROPS/SYRINGE) 3 DROPS EYE-OP (07:38)
--- NOTE | 2020-04-13 08:07 | PM.PREOP ---
Pre-operative Note Interval Note History & Physical reviewed/Exam performed by Physician: Yes Changes to H&P: No
--- NOTE | 2020-04-13 08:07 | PM.OP.1 ---
Operative Date/Time/Diagnoses Pre-op diagnosis: Nuclear cataract right eye Procedure & Clinicians Procedure: Cataract Surgery Same procedure as scheduled: Yes Surgeon: Cristo Tompkins Anesthesia Type: MAC +/- and Sedation Operative Notes Procedure in detail: Patient brought to the operating suite. Tetracaine drops placed in the right eye. Patient was prepped and draped in sterile manner. Wire lid speculum was placed in the eye. Betadine drops were placed on the eye. This was irrigated. Lidocaine jelly was placed on the eye. A paracentesis port was created with a side-port blade. 0.1 mL 1% preservative free lidocaine was injected into the anterior chamber. The anterior chamber was deepened with viscoelastic. 2.6 mm keratome was used to create a temporal clear corneal incision. Cystotome and Utrata forceps were used to create continuous tear capsulorrhexis. Balanced salt solution was used to hydro dissect the nucleus. The phacoemulsification handpiece was inserted and the nucleus was removed using the stop and chop technique. The irrigation aspiration handpiece was inserted and the remaining cortex was removed. Anterior chamber was deepened with viscoelastic. An Whitney ZCB00 intraocular lens with a power of 19.0 was injected into the capsular bag. Irrigation aspiration handpiece was inserted and the remaining viscoelastic was removed. Incision was hydrated with balanced salt solution and found to be leak free with pressure with Weck-Huong sponges. 0.1 mL Vigamox injected anterior chamber. 0.3 mL Kenalog 10 mg was injected subconjunctivally. Lid speculum was removed. The patient left the operating room in excellent condition. Complications: none Post-operative Condition: stable Disposition: same day surgery
[2020-04-13] MEDS: PHENYLEPHRINE/LIDOCAINE VIAL (OR) 0.2 ML EYE-OP (08:31)
[2020-04-13] MEDS: TRIAMCINOLONE 50 MG/5 ML VIAL INJ (08:31)
[2020-04-13] MEDS: MOXIFLOXACIN INJ 5 MG/ML VIAL EYE-OP (08:31)
[2020-04-13] MEDS: TETRACAINE 0.5% OPHTH DROPS 4 ML 2 DROPS EYE-OP (08:32)
[2020-04-13] MEDS: CHONDROIDTIN/SOD HYALURONATE 1.05 ML SYRINGE INTRAOCULA (08:32)
[2020-04-13] MEDS: LIDOCAINE JELLY 2% 5 ML 1 APPLIC TOP (08:32)
[2020-04-13] MEDS: BALANCED SALT IRRIG SOLN NO.2 500 ML, EPINEPHrine 1 MG IRR (08:32)
[2020-04-13 08:50] VITALS: BP 117/89; PULSE 79; RESP 18; TEMP 36.6; O2SAT 95
== END 2020-04-13 09:02 | disposition home or self-care (01) ==
PROVIDERS: PCP Family Medicine; Referring Provider Family Medicine; Visit Provider Ophthalmology
PROC: (CPT 66984; principal; 2020-04-13 08:15)
DX: H25.11 Age-related nuclear cataract, right eye (principal); I10 Essential (primary) hypertension; F41.9 Anxiety disorder, unspecified; F32.9 Major depressive disorder, single episode, unspecified; G47.33 Obstructive sleep apnea (adult) (pediatric)
CPT/HCPCS: 66984; J0171; J2250; J3010; J3301

== ENCOUNTER → 2020-04-26 09:48 | Outpatient (CLI) | payer MEDICARE, BC, SELFPAY ==
[2020-04-26 10:33] LABS: COVID19 -Nasal RAPID Negative (Negative)
== END ==
PROVIDERS: PCP Family Medicine; Visit Provider Physician Assistant
DX: Z11.59 Encounter for screening for other viral diseases (principal)
CPT/HCPCS: 87635

== ENCOUNTER 2020-04-27 07:01 | Day surgery (SDC) | payer MEDICARE, BC, SELFPAY ==
[2020-04-27] MEDS: CATARACT EYE COMPOUND (10 DROPS/SYRINGE) 3 DROPS EYE-OP (07:23)
[2020-04-27] MEDS: PROPARACAINE 0.5% OPHTH SOL 2 DROPS EYE-OP (07:23)
[2020-04-27 07:27] VITALS: BP 117/77; PULSE 77; RESP 16; TEMP 36.6; O2SAT 97; BMI 30.1
--- NOTE | 2020-04-27 08:03 | P.OP_ITS ---
Operative Date/Time/Diagnoses Pre-op diagnosis: Nuclear Cataract Left eye Post-op diagnosis: same Procedure & Clinicians Same procedure as scheduled: Yes Surgeon: Cristo Tompkins Anesthesia Type: MAC +/- and Sedation Operative Notes Procedure in detail: Patient brought to the operating suite. Tetracaine drops placed in the left eye. Patient was prepped and draped in sterile manner. Wire lid speculum was placed in the eye. Betadine drops were placed on the eye. This was irrigated. Lidocaine jelly was placed on the eye. A paracentesis port was created with a side-port blade. 0.1 mL 1% preservative free lidocaine was injected into the anterior chamber. The anterior chamber was deepened with viscoelastic. 2.6 mm keratome was used to create a temporal clear corneal incision. Cystotome and Utrata forceps were used to create continuous tear capsulorrhexis. Balanced salt solution was used to hydro dissect the nucleus. The phacoemulsification handpiece was inserted and the nucleus was removed using the stop and chop technique. The irrigation aspiration handpiece was inserted and the remaining cortex was removed. Anterior chamber was deepened with viscoe lastic. An Whitney ZCB00 intraocular lens with a power of 19.0 was injected into the capsular bag. Irrigation aspiration handpiece was inserted and the remaining viscoelastic was removed. Incision was hydrated with balanced salt solution and found to be leak free with pressure with Weck-Huong sponges. 0.1 mL Vigamox injected anterior chamber. 0.3 mL Kenalog 10 mg was injected subconjunctivally. Lid speculum was removed. The patient left the operating room in excellent condition. Complications: none Post-operative Condition: stable Disposition: same day surgery
--- NOTE | 2020-04-27 08:03 | PM.PREOP ---
Pre-operative Note Interval Note History & Physical reviewed/Exam performed by Physician: Yes Changes to H&P: No
[2020-04-27] MEDS: TETRACAINE 0.5% OPHTH DROPS 4 ML 2 DROPS EYE-OP (08:22)
[2020-04-27] MEDS: PHENYLEPHRINE/LIDOCAINE VIAL (OR) 0.2 ML EYE-OP (08:22)
[2020-04-27] MEDS: CHONDROIDTIN/SOD HYALURONATE 1.05 ML SYRINGE INTRAOCULA (08:22)
[2020-04-27] MEDS: LIDOCAINE JELLY 2% 5 ML 1 APPLIC TOP (08:22)
[2020-04-27] MEDS: MOXIFLOXACIN INJ 5 MG/ML VIAL EYE-OP (08:22)
[2020-04-27] MEDS: BALANCED SALT IRRIG SOLN NO.2 500 ML, EPINEPHrine 1 MG IRR (08:23)
[2020-04-27] MEDS: TRIAMCINOLONE 50 MG/5 ML VIAL INJ (08:23)
[2020-04-27 08:40] VITALS: BP 124/78; PULSE 78; RESP 16; TEMP 36.4; O2SAT 94
== END 2020-04-27 08:51 | disposition home or self-care (01) ==
PROVIDERS: PCP Family Medicine; Referring Provider Ophthalmology; Visit Provider Ophthalmology
PROC: (CPT 66984; principal; 2020-04-27 08:15)
DX: H25.12 Age-related nuclear cataract, left eye (principal); I10 Essential (primary) hypertension; F41.9 Anxiety disorder, unspecified; F32.9 Major depressive disorder, single episode, unspecified; I49.9 Cardiac arrhythmia, unspecified
CPT/HCPCS: 66984; J0171; J2250; J3010; J3301

== ENCOUNTER 2020-06-24 18:52 | Emergency (ER) | payer MEDICARE, BC, SELFPAY ==
[2020-06-24 18:56] VITALS: BP 141/88; PULSE 94; RESP 16; TEMP 37; O2SAT 96; BMI 32.3
--- NOTE | 2020-06-24 19:27 | DI.RAD.S_ITS ---
PROCEDURE: XR RIBS RT MIN 3V W CXR 1V INDICATIONS: GLF TECHNIQUE: 2 views of the right ribs were acquired, along with a single view chest. COMPARISON: [facility], CR, XR SHOULDER RT MIN 2V, 06/24/2020, 19:29. FINDINGS: Surgical changes and devices: None. Bones and chest wall: The right lateral 5th rib fracture seen by shoulder film is not well seen on the current examination. No suspicious bony lesions. Overlying soft tissues appear unremarkable. Lungs and pleura: No pleural effusions or pneumothorax. Lungs appear clear. Mediastinum: Mediastinal contours appear normal. Heart size is normal. IMPRESSION: Right lateral 5th rib fracture seen by shoulder film is not well seen on the current examination. Dictated by: Juana Murcia M.D. on 06/24/2020 at 19:55 Approved by: Juana Murcia M.D. on 06/24/2020 at 19:56
--- NOTE | 2020-06-24 19:28 | DI.RAD.S_ITS ---
PROCEDURE: XR SHOULDER RT MIN 2V INDICATIONS: GLF TECHNIQUE: 3 views of the shoulder were acquired. COMPARISON: [facility], CR, XR RIBS RT MIN 3V W CXR 1V, 06/24/2020, 19:29. FINDINGS: Bones: Mild bony offset involves the right lateral 5th rib. No suspicious bony lesions. Visualized ribs appear intact. Periarticular osteophyte formation at the acromioclavicular and glenohumeral joints. Soft tissues: No suspicious soft tissue calcifications. IMPRESSION: 1. Right 5th rib fracture. 2. No evidence of shoulder fracture. Dictated by: Juana Murcia M.D. on 06/24/2020 at 19:54 Approved by: Juana Murcia M.D. on 06/24/2020 at 19:55
--- NOTE | 2020-06-24 20:04 | ED.FALL ---
HPI - Fall General Chief Complaint: Fall Stated Complaint: rt shoulder injury Time Seen by Provider: 06/24/20 19:03 Mode of arrival: Wheelchair History of Present Illness HPI Narrative: 65-year-old male nonsmoker with noncontributory medical history presents with his in the chief complaint of a slip and fall in which he landed on his right shoulder and ribs in now has pain with range of motion. He denies any head neck or back pain. He has full recall. He denies any loss of consciousness nor the use of blood thinners. He states that he has significant pain with range of motion of his right arm at the shoulder but denies any numbness, tingling or weakness. He initially denies any pain in his elbow but as the visit goes he admits to pain hears well. He denies any numbness, tingling or weakness. He has significant, sharp and stabbing pain in his right lateral ribs which is made worse with deep breaths and motion. He was hiking with his in slipped on the ground and landed with pain MD complaint: fall Fall from: standing Fall witnessed: yes, by family Place fall occurred: other Loss of consciousness: none Prolonged down time: no Symptoms prior to fall: none Context: tripped/slipped Location of injury - extremities: Right: shoulder and elbow Severity: moderate Quality: burning and sharp Associated symptoms (after fall): chest pain (Right lateral ribs) Related Data Home Medications Medication Instructions Recorded Confirmed acalabrutinib 100 mg capsule 100 mg PO Q12H 03/13/18 06/07/20 escitalopram oxalate 10 mg PO QAM 05/21/19 06/07/20 trazodone 50 mg tablet 50 mg PO BEDTIME PRN 12/31/19 04/27/20 Previous Rx's Medication Instructions Recorded hydrocodone-acetaminophen 1 tab PO Q4-6H PRN #20 tab 06/24/20 Allergies Allergy/AdvReac Type Severity Reaction Status Date / Time house dust Allergy Mild sneezing, Verified 06/24/20 18:56 runny nose hay Allergy Mild sneezing, Uncoded 06/07/20 14:38 runny nose Review of Systems Constitutional Constitutional: Denies chills, Denies fatigue, Denies fever(s), Denies frequent falls, Denies lethargy and Denies weakness Eyes Eyes: Denies change in vision, Denies eye discharge, Denies irritation and Denies loss of vision ENT Ears, Nose, Mouth, and Throat: Denies change in voice, Denies dizziness, Denies neck pain, Denies sore throat and Denies throat swelling Cardiovascular Cardiovascular: Reports chest pain, Denies irregular heart rhythm, Denies lightheadedness, Denies palpitations, Denies dyspnea, Denies dyspnea on exertion and Denies orthopnea Respiratory Respiratory: Denies cough, Reports pain on inspiration, Denies dyspnea, Denies dyspnea on exertion and Denies wheezing Gastrointestinal Gastrointestinal: Denies abdominal pain, Denies change in bowel habits, Denies diarrhea, Denies nausea and Denies vomiting Musculoskeletal Musculoskeletal: Reports back pain, Reports arthralgias, Reports limited range of motion, Denies neck pain and Denies numbness Integumentary/Breasts Skin/Breast: Denies pruritus, Denies erythema, Denies rash and Denies wounds Neurologic Neurologic: Denies behavioral changes, Denies confusion, Denies dizziness, Denies frequent falls, Denies loss of vision, Denies numbness and Denies weakness Psychiatric Psychiatric: Denies anxiety, Denies behavioral changes, Denies confusion, Denies depression, Denies homicidal ideation and Denies suicidal ideation Endocrine Endocrine: Denies fatigue, Denies flushing and Denies palpitations Hematologic/Lymphatic Hematologic/Lymphatic: Denies easy bruising Allergic/Immunologic Allergic/Immunologic: Denies urticaria, Denies throat swelling and Denies wheezing Patient History Medical History Allergic rhinitis Anxiety Arm fracture, right (~1985) CLL (chronic lymphocytic leukemia) (~05/2010) Colon polyps Kidney stone Knee pain (04/2012) Low testosterone Obstructive sleep apnea Osteopenia Squamous cell carcinoma Surgical History Hx of colonoscopy with polypectomy (07/2013) Hx of squamous cell carcinoma excision Family History Father Cancer Hypertension Depression Anxiety Mother CLL (chronic lymphocytic leukemia) Loud snoring Restless leg Hypertension Family/Other Sleep apnea Restless leg Social History household members: spouse Smoking Status: Never smoker alcohol intake: current Smoking Status: Never smoker alcohol intake frequency: holidays/special occasions only Alcohol type: beer Substance Use Type: does not use Exam Narrative Exam Narrative: GENERAL: [65] year old patient appears stated age. Well-nourished, well-developed patient, in mild distress. GCS 15 HEAD: Atraumatic. Normocephalic. EYES: Pupils equal round and reactive. Extraocular motions intact. No scleral icterus. No injection or drainage. ENT: Nose without bleeding, purulent drainage. Throat without erythema, tonsillar hypertrophy or exudate. Airway patent. NECK: Trachea midline. Non tender CARDIOVASCULAR: Regular rate and rhythm without murmurs, gallops, or rubs. Sharp pinpoint, reproducible pain on R lateral ribs RESPIRATORY: Clear to auscultation. Breath sounds equal bilaterally. No wheezes, rales, or rhonchi. GASTROINTESTINAL: Abdomen soft, non-tender, nondistended. EXTREMITIES: Decreased range of motion secondary to pain at shoulder and elbow. No obvious deformity, closed, isolated and neurovascularly intact. BACK: Nontender without deformity or crepitance. No flank tenderness. NEURO: AOx3. SKIN: No rash or erythema of visible areas Initial Vital Signs Initial Vital Signs: Vital Signs Temperature 98.6 F 06/24/20 18:56 Pulse Rate 94 H 06/24/20 18:56 Respiratory Rate 16 06/24/20 18:56 Blood Pressure 141/88 H 06/24/20 18:56 Pulse Oximetry 96 06/24/20 18:56 Procedures Orthopedic Splinting/Casting Injury #1: Side: right Upper Extremity Injury Location: shoulder Upper Extremity Immobilizer: sling/shoulder immobilizer Post splinting neuro exam: intact Post splinting vascular exam: intact Placed by: Nursing Course Orders Ordered: Discontinued Medications Hydrocodone Bitart/Acetaminophen (Hydrocodone/Acet 5/325 Prepack) 1 bottle MISC SEEINSTR ONE Stop: 06/24/20 20:44 Last Admin: 06/24/20 20:47 Dose: 1 bottle Documented by: TIM Vital Signs Vital signs: Vital Signs - 8 hr 06/24/20 18:56 Temperature 98.6 F Pulse Rate 94 H Respiratory Rate 16 Blood Pressure 141/88 H Pulse Oximetry 96 MDM - Fall Imaging Data L Spine: Radiologist's Impression: Morteza Ramírez 65 M [address] [id number] ReportSigned Patient: Morteza Ramírez R#: [id number]: 1955t:[id number]/Sex: 65 / MDate of Service: 06/24/20Loc: EDAccession Number: [id number] Procedure: XR lumbar spine 2-3V Ordering Provider: Wilfredo East D.O. PROCEDURE: XR LUMBAR SPINE 2-3V INDICATIONS: midline bony pain TECHNIQUE: 3 views of the lumbar spine were acquired. COMPARISON: None. FINDINGS: Bones: 5 [id number] vertebrae are present. There is normal bony alignment. No vertebral body compression fractures. No suspicious bony lesions. Soft tissues: Overlying bowel gas pattern is normal. No suspicious soft tissue calcifications. IMPRESSION: No acute fracture. No osseous lesion. If symptoms and/or clinical suspicion for pathology persist, further assessment with repeat, or advanced imaging (e.g., CT, MRI, or bone scan) may be helpful for further assessment. Dictated by: Juana Murcia M.D. on 06/24/2020 at 20:40 Approved by: Juana Murcia M.D. on 06/24/2020 at 20:40 Elbow Xray / Shoulder Xray: Radiologist's Impression: Morteza Ramírez 65 M [address] [id number] ReportSigned Patient: Morteza Ramírez R#: [id number]: [id number]/Sex: 65 / MDate of Service: 06/24/20Loc: EDAccession Number: [id number] Procedure: XR elbow RT min 3V Ordering Provider: Wilfredo East D.O. PROCEDURE: XR ELBOW RT MIN 3V INDICATIONS: fall with elbow pain TECHNIQUE: 3 views of the elbow were acquired. COMPARISON: None. FINDINGS: Bones: No fractures or dislocations. No suspicious bony lesions. Soft tissues: No elbow joint effusion. No suspicious soft tissue calcifications. IMPRESSION: No acute fracture. No osseous lesion. If symptoms and/or clinical suspicion for pathology persist, further assessment with repeat, or advanced imaging (e.g., CT, MRI, or bone scan) may be helpful for further assessment. Dictated by: Juaan Murcia M.D. on 06/24/2020 at 20:24 Approved by: Juana Murcia M.D. on 06/24/2020 at 20:24 Morteza Ramírez Shaw 65 M [address] [id number] ReportSigned Patient: Morteza Ramírez LMR#: [id number]: 1955cct:[id number]/Sex: 65 / MDate of Service: 06/24/20Loc: EDAccession Number: [id number] Procedure: XR shoulder RT min 2V Ordering Provider: Wilfredo East D.O. PROCEDURE: XR SHOULDER RT MIN 2V INDICATIONS: GLF TECHNIQUE: 3 views of the shoulder were acquired. COMPARISON: [facility], CR, XR RIBS RT MIN 3V W CXR 1V, 06/24/2020, 19:29. FINDINGS: Bones: Mild bony offset involves the right lateral 5th rib. No suspicious bony lesions. Visualized ribs appear intact. Periarticular osteophyte formation at the acromioclavicular and glenohumeral joints. Soft tissues: No suspicious soft tissue calcifications. IMPRESSION: 1. Right 5th rib fracture. 2. No evidence of shoulder fracture. Dictated by: Juana Murcia M.D. on 06/24/2020 at 19:54 Approved by: Juana Murcia M.D. on 06/24/2020 at 19:55 Chest x-ray: Radiologist's Impression: [address] [id number] ReportSigned Patient: Morteza Ramírez LMR#: [id number]: 1955cct:[id number]/Sex: 65 / MDate of Service: 06/24/20Loc: EDAccession Number: [id number] Procedure: XR ribs RT min 3V w CXR1V Ordering Provider: Wilfredo East D.O. PROCEDURE: XR RIBS RT MIN 3V W CXR 1V INDICATIONS: GLF TECHNIQUE: 2 views of the right ribs were acquired, along with a single view chest. COMPARISON: [facility], CR, XR SHOULDER RT MIN 2V, 06/24/2020, 19:29. FINDINGS: Surgical changes and devices: None. Bones and chest wall: The right lateral 5th rib fracture seen by shoulder film is not well seen on the current examination. No suspicious bony lesions. Overlying soft tissues appear unremarkable. Lungs and pleura: No pleural effusions or pneumothorax. Lungs appear clear. Mediastinum: Mediastinal contours appear normal. Heart size is normal. IMPRESSION: Right lateral 5th rib fracture seen by shoulder film is not well seen on the current examination. Dictated by: Juana Murcia M.D. on 06/24/2020 at 19:55 Approved by: Juana Murcia M.D. on 06/24/2020 at 19:56 Discharge Plan Departure Patient Disposition: Home Clinical Impression: Closed rib fracture Qualifiers: Encounter type: initial encounter Rib fracture type: single rib Laterality: right Qualified Code(s): S22.31XA - Fracture of one rib, right side, initial encounter for closed fracture Fall Qualifiers: Encounter type: initial encounter Qualified Code(s): W19.XXXA - Unspecified fall, initial encounter Acute lumbar myofascial strain Qualifiers: Encounter type: initial encounter Qualified Code(s): S39.012A - Strain of muscle, fascia and tendon of lower back, initial encounter Sprain of right shoulder Qualifiers: Encounter type: initial encounter Shoulder sprain type: unspecified sprain Qualified Code(s): S43.401A - Unspecified sprain of right shoulder joint, initial encounter Instructions: DI for Rib Fracture Activity Restrictions/Additional Instructions: *You have been diagnosed with [fall with right rib fracture, shoulder sprain, elbow contusion, back pain] *What to do: *Take medications as directed: Hydrocodone was sent to [facility] *Follow up with your primary care provider in 2-3 days, call for an appointment. Let them know you were seen in the Emergency Department and that we ask that you be seen in follow up *Return to ER if you should have any new, worsening or concerning symptoms Prescriptions: New hydrocodone-acetaminophen 5-325 mg tablet 1 tab PO Q4-6H PRN (Reason: pain) Qty: 20 RF: 0 No Action acalabrutinib 100 mg capsule 100 mg PO Q12H RF: 0 escitalopram oxalate 10 mg tablet 10 mg PO QAM RF: 0 trazodone 50 mg tablet 50 mg PO BEDTIME PRN (Reason: Pain (Scale Score 1-3)) RF: 0 Referrals: Carrie Gadruno DO [Primary Care Provider] -
--- NOTE | 2020-06-24 20:15 | DI.RAD.S_ITS ---
PROCEDURE: XR LUMBAR SPINE 2-3V INDICATIONS: midline bony pain TECHNIQUE: 3 views of the lumbar spine were acquired. COMPARISON: None. FINDINGS: Bones: 5 [id number] vertebrae are present. There is normal bony alignment. No vertebral body compression fractures. No suspicious bony lesions. Soft tissues: Overlying bowel gas pattern is normal. No suspicious soft tissue calcifications. IMPRESSION: No acute fracture. No osseous lesion. If symptoms and/or clinical suspicion for pathology persist, further assessment with repeat, or advanced imaging (e.g., CT, MRI, or bone scan) may be helpful for further assessment. Dictated by: Juana Murcia M.D. on 06/24/2020 at 20:40 Approved by: Juana uMrcia M.D. on 06/24/2020 at 20:40
[2020-06-24] MEDS: HYDROCODONE/ACET 5/325 PREPACK 1 BOTTLE MISC (20:47)
[2020-06-24 21:02] VITALS: BP 125/78; PULSE 97; RESP 18; O2SAT 94
== END 2020-06-24 21:03 | disposition home or self-care (01) ==
PROVIDERS: Emergency Provider Emergency Medicine; PCP Family Medicine
DX: S22.31XA Fracture of one rib, right side, initial encounter for closed fracture (principal); S39.012A Strain of muscle, fascia and tendon of lower back, initial encounter; S43.401A Unspecified sprain of right shoulder joint, initial encounter; R07.81 Pleurodynia; R07.9 Chest pain, unspecified; W19.XXXA Unspecified fall, initial encounter
CPT/HCPCS: 71101; 72100; 73030; 73080; 99283

== ENCOUNTER → 2020-07-26 08:48 | Outpatient (CLI) | payer MEDICARE, BC, SELFPAY ==
[2020-07-26 12:28] LABS: COVID19 -Nasal RAPID Negative (Negative)
== END ==
PROVIDERS: PCP Family Medicine; Visit Provider Family Medicine Sleep Medicine
DX: Z20.822 Contact with and (suspected) exposure to COVID-19 (principal)
CPT/HCPCS: 87635; C9803

== ENCOUNTER → 2020-08-25 08:36 | Outpatient (CLI) | payer MEDICARE, BC, SELFPAY ==
[2020-08-25 10:47] LABS: COVID19 -Nasal RAPID Negative (Negative)
== END ==
PROVIDERS: PCP Family Medicine; Visit Provider Family Medicine Sleep Medicine
DX: Z20.822 Contact with and (suspected) exposure to COVID-19 (principal); G47.33 Obstructive sleep apnea (adult) (pediatric)
CPT/HCPCS: 87635; 95811

== ENCOUNTER → 2020-09-15 16:02 | Outpatient (CLI) | payer MEDICARE, BC, SELFPAY ==
--- NOTE | 2020-09-15 | DI.RAD.S_ITS ---
PROCEDURE: XR CERVICAL SPINE 2V OR 3V INDICATIONS: PAIN S/P FALL TECHNIQUE: 3 view(s) of the cervical spine were acquired. COMPARISON: None. FINDINGS: Bones: No fractures or dislocations to the T1 level. The lateral masses of C1 appear intact on the odontoid view. No suspicious bony lesions. Soft tissues: No prevertebral soft tissue swelling. IMPRESSION: C5-6 moderately severe degenerative disc disease, partially visualized due to overlying shoulder structures. No subluxation seen. No trauma found. Dictated by: Morteza Gresham M.D. on 09/15/2020 at 17:29 Approved by: Morteza Gresham M.D. on 09/15/2020 at 17:30
--- NOTE | 2020-09-15 | DI.RAD.S_ITS ---
PROCEDURE: XR LUMBAR SPINE 2-3V INDICATIONS: PAIN S/P FALL TECHNIQUE: 3 views of the lumbar spine were acquired. COMPARISON: , CR, XR LUMBAR SPINE 2-3V, 06/24/2020, 20:16. FINDINGS: Bones: 5 [id number] vertebrae are present. There is normal bony alignment. No vertebral body compression fractures. No suspicious bony lesions. Soft tissues: Overlying bowel gas pattern is normal. No suspicious soft tissue calcifications. IMPRESSION: Minimal degenerative disc disease noted at the thoracolumbar junction and along the lumbosacral spine best seen at L4-5. Facet osteoarthritis becomes progressively more prominent from L3 inferiorly and is most pronounced at L4-5 and L5-S1. Subluxation is not associated, however. Dictated by: Morteza Gresham M.D. on 09/15/2020 at 17:31 Approved by: Morteza Gresham M.D. on 09/15/2020 at 17:31
--- NOTE | 2020-09-15 | DI.RAD.S_ITS ---
PROCEDURE: XR SHOULDER RT MIN 2V INDICATIONS: PAIN S/P FALL TECHNIQUE: 3 views of the shoulder were acquired. COMPARISON: [facility], CR, XR SHOULDER RT MIN 2V, 06/24/2020, 19:29. FINDINGS: Bones: No fractures or dislocations. No suspicious bony lesions. Visualized ribs appear intact. Soft tissues: No suspicious soft tissue calcifications. IMPRESSION: [id number] AC joint osteoarthritis. Mild glenohumeral joint degenerative osteoarthritic change. Dictated by: Morteza Gresham M.D. on 09/15/2020 at 17:29 Approved by: Morteza Gresham M.D. on 09/15/2020 at 17:29
--- NOTE | 2020-09-15 | DI.RAD.S_ITS ---
PROCEDURE: XR THORACIC SPINE 3V INDICATIONS: PAIN S/P FALL TECHNIQUE: 3 views of the thoracic spine were acquired. COMPARISON: None. FINDINGS: Bones: No fractures or dislocations. No suspicious bony lesions. 12 pairs of ribs are noted, and appear intact where visualized. Soft tissues: No paravertebral stripe thickening. IMPRESSION: No acute trauma found. Only a mild degree of degenerative disc height reduction is seen along the middle 3rd of the thoracic spine. No compression fracture suspected. Dictated by: Morteza Gresham M.D. on 09/15/2020 at 17:30 Approved by: Morteza Gresham M.D. on 09/15/2020 at 17:30
== END ==
PROVIDERS: PCP Family Medicine; Referring Provider Family Medicine; Visit Provider Family Medicine
DX: M50.322 Other cervical disc degeneration at C5-C6 level (principal); M54.9 Dorsalgia, unspecified; M47.816 Spondylosis without myelopathy or radiculopathy, lumbar region; M47.817 Spondylosis without myelopathy or radiculopathy, lumbosacral region; M25.511 Pain in right shoulder; M19.011 Primary osteoarthritis, right shoulder
CPT/HCPCS: 72040; 72072; 72100; 73030

== ENCOUNTER → 2021-10-24 07:40 | Outpatient (CLI) | payer MEDICARE, OTHER, SELFPAY ==
[2021-10-24 08:51] LABS: Hemoglobin A1C% w Est Avg Glu 4.9 % (4.0-6.0)
[2021-10-24 08:57] LABS: Add Manual Diff / Slide Review YES; Hematocrit 47.6 % (41-53); Hemoglobin 16.6 g/dL (13.5-17.5); Mean Corpuscular HGB Conc 34.8 % (30-36); Mean Corpuscular Volume 88.9 fL (80-100); Platelet Count 136 X10^3/uL (150-400); Red Blood Cell Count 5.35 X10^6/uL (4.5-5.9); Red Cell Distribution Width 13.3 % (11.6-14.8); White Blood Cell Count 9.9 X10^3/uL (4.5-11.0)
[2021-10-24 09:14] LABS: Alanine Aminotransferase 22 IU/L (<50); Albumin 4.2 g/dL (3.5-5.0); Alkaline Phosphatase 62 U/L (38-126); Aspartate Aminotransferase 22 IU/L (17-59); Bilirubin Total 1.2 mg/dL (0.2-1.3); Blood Urea Nitrogen 20 mg/dL (9-20); Calcium 9.2 mg/dL (8.4-10.2); Carbon Dioxide 29 mmol/L (22-32); Chloride 107 mmol/L (98-107); Cholesterol 163 mg/dL (140-199); Estimated Glomerular Filt Rate 59 mL/min (>60); Globulin 2.1 g/dL (1.7-4.1); Glucose 98 mg/dL (80-110); HDL Cholesterol 31 mg/dL (40-60); LDL Cholesterol Calculated 89 mg/dL (<100); Sodium 139 mmol/L (137-145); Total Protein 6.3 g/dL (6.3-8.2); Triglycerides 215 mg/dL (35-150)
[2021-10-24 09:45] LABS: HEMOLYSIS < 15 (0-50); Prostate Specific Antigen Scrn 2.59 ng/mL (0.1-4.0)
[2021-10-24 09:57] LABS: Neutrophils Absolute Manual 3069 /uL (3000-5900); Total Cells Counted 100
[2021-10-24 09:59] LABS: RBC Morphology Normal Morphology
[2021-10-24 10:21] LABS: Folate 4.4 ng/mL (2.76-20.0); Vitamin B12 782 pg/mL (239-931)
[2021-10-24 16:03] LABS: Rubella Antibody IgG > 350.0 IU/mL (>15)
[2021-10-25 07:36] LABS: Rubeola Measles IgG 98.4 AU/mL (Immune >16.4); Varicella IgG Antibody 676 index (Immune >165)
[2021-10-26 10:03] LABS: Mumps Virus IgG Antibody 34.4 AU/mL (Immune >10.9)
== END ==
PROVIDERS: PCP Family Medicine; Referring Provider Family Medicine; Visit Provider Family Medicine
DX: G31.84 Mild cognitive impairment of uncertain or unknown etiology (principal); E29.1 Testicular hypofunction; R41.89 Other symptoms and signs involving cognitive functions and awareness
CPT/HCPCS: 36415; 80053; 80061; 82607; 82746; 83036; 85007; 85025; 86735; 86762; 86765; 86787; G0103

== ENCOUNTER 2022-01-23 15:45 | Emergency (ER) | payer MEDICARE, OTHER, SELFPAY ==
[2022-01-23] VITALS (13 sets, daily range): BP systolic 92–134; BP diastolic 52–85; PULSE 83–111; RESP 21–24; TEMP 37.1; O2SAT 92–96
--- NOTE | 2022-01-23 15:58 | DI.RAD.S_ITS ---
PROCEDURE: XR CHEST 1V INDICATIONS: chest pain TECHNIQUE: One view of the chest was acquired. COMPARISON: [facility], , CHEST 2 VIEW, 06/21/2015, 16:07. FINDINGS: Surgical changes and devices: None. Lungs and pleura: Lungs are clear. No pleural effusions or pneumothorax. Mediastinum: Mediastinal contours appear normal. Heart size is normal. Bones and chest wall: No suspicious bony lesions. Overlying soft tissues appear unremarkable. IMPRESSION: No acute cardiopulmonary disease. Dictated by: Forrest Perez M.D. on 01/23/2022 at 16:21 Approved by: Forrest Perez M.D. on 01/23/2022 at 16:30
[2022-01-23 16:40] LABS: Add Manual Diff / Slide Review NO; Basophils Absolute Auto 0 /uL (0-100); Basophils Percent Auto 0.5 % (0-2); Eosinophils Absolute Auto 0 /uL (0-450); Hematocrit 43.5 % (41-53); Hemoglobin 15.4 g/dL (13.5-17.5); Lymphocytes Absolute Auto 5400 /uL (1100-4500); Lymphocytes Percent Auto 54.3 % (25-40); Mean Corpuscular HGB Conc 35.3 % (30-36); Mean Corpuscular Hemoglobin 31.3 PG (26-34); Mean Corpuscular Volume 88.7 fL (80-100); Monocytes Absolute Auto 1000 /uL (0-900); Monocytes Percent Auto 9.7 % (3-14); Neutrophils Absolute Auto 3500 /uL (1500-7000); Neutrophils Percent Auto 35.5 % (50-75); Platelet Count 91 X10^3/uL (150-400); Red Blood Cell Count 4.91 X10^6/uL (4.5-5.9); Red Cell Distribution Width 12.9 % (11.6-14.8); White Blood Cell Count 9.9 X10^3/uL (4.5-11.0)
[2022-01-23 16:46] LABS: D Dimer < 200 ng/mL (<230)
[2022-01-23 16:50] LABS: Lactate (Lactic Acid) 1.1 mmol/L (0.7-2.1)
[2022-01-23 16:52] LABS: Alanine Aminotransferase 21 IU/L (<50); Albumin 4.1 g/dL (3.5-5.0); Albumin Globulin Ratio 1.6 (1.0-2.8); Alkaline Phosphatase 64 U/L (38-126); Aspartate Aminotransferase 22 IU/L (17-59); BUN Creatinine Ratio 15.1 (6-22); Bilirubin Total 1.7 mg/dL (0.2-1.3); Blood Urea Nitrogen 18 mg/dL (9-20); C-Reactive Protein Quant 3.9 mg/dL (<1.0); Calcium 8.6 mg/dL (8.4-10.2); Carbon Dioxide 24 mmol/L (22-32); Chloride 104 mmol/L (98-107); Creatine Kinase 50 U/L (55-170); Estimated Glomerular Filt Rate > 60 mL/min (>60); Globulin 2.5 g/dL (1.7-4.1); Glucose 107 mg/dL (80-110); HEMOLYSIS < 15 (0-50); Potassium 3.9 mmol/L (3.4-5.1); Sodium 136 mmol/L (137-145); Total Protein 6.6 g/dL (6.3-8.2)
[2022-01-23 16:52] LABS: COVID19 -Nasal RAPID POSITIVE (Negative)
[2022-01-23 17:03] LABS: NT-proBNP (BNP-Adult 18+) 23 pg/mL (<125); Troponin I < 0.012 ng/mL (0.01-0.034)
[2022-01-23 17:07] LABS: Procalcitonin 0.18 ng/mL (<0.5)
[2022-01-23 17:25] LABS: Ferritin 146 ng/mL (18-464)
--- NOTE | 2022-01-23 20:12 | ED_ITS ---
HPI - SOB/Dyspnea General Chief Complaint: Shortness of Breath/Dyspnea Stated Complaint: COVID+ FAST HEART BEAT LOW O2 Time Seen by Provider: 01/23/22 16:01 Source: patient Mode of arrival: Ambulatory History of Present Illness HPI Narrative: Patient here for evaluation of COVID infection. Patient is sent here by urgent care as well as Oncology with [facility]. He has CLL. They are inquiring about Paxlovid. Patient 94% room air. At urgent care saw him today and reported low oxygen. He is in no distress at this time. He is had fever chills cough cold congestion for the past 3 days. He is COVID vaccinated. He is on acalabrutinib. Patient not requiring oxygen at this time. He is in no distress Related Data Home Medications Medication Instructions Recorded Confirmed acalabrutinib 100 mg capsule 100 mg PO Q12H 03/13/18 07/27/21 trazodone 50 mg tablet 50 mg PO BEDTIME PRN Pain (Scale 12/31/19 07/27/21 Score 1-3) ResMed AirCurve 10 07/27/21 07/27/21 Previous Rx's Medication Instructions Recorded nirmatrelvir 300 mg (150 mg x See Rx Instructions PO .COMPLEX 01/23/22 2)-ritonavir 100 mg tablet (EUA) #30 tabs (Paxlovid 300 mg () Allergies Allergy/AdvReac Type Severity Reaction Status Date / Time house dust Allergy Mild sneezing, Verified 07/27/21 10:22 runny nose hay Allergy Mild sneezing, Uncoded 09/02/20 11:05 runny nose Review of Systems Review of Systems Narrative: GENERAL: Positive for chills, fatigue, malaise, fever, sweats. HEENT: Denies sinus pain, ear pain, sore throat RESPIRATORY: Positive for dyspnea, cough CARDIOVASCULAR: Denies chest pain, palpitations GASTROINTESTINAL: Denies nausea, vomiting, abdominal pain : Denies dysuria, frequency, hematuria MUSCULOSKELETAL: Positive for muscle or bony pain SKIN: Denies rash, skin lesions NEUROLOGIC: Denies weakness, numbness ROS Unobtainable: All systems reviewed & are unremarkable except as noted in HPI and below Patient History Medical History Allergic rhinitis Anxiety Arm fracture, right (~1985) CLL (chronic lymphocytic leukemia) (~05/2010) Colon polyps Complex sleep apnea syndrome Excessive daytime sleepiness Insomnia, psychophysiological Kidney stone Knee pain (04/2012) Low testosterone Obstructive sleep apnea, adult Osteopenia Squamous cell carcinoma Surgical History Hx of colonoscopy with polypectomy (07/2013) Hx of squamous cell carcinoma excision Family History Father Cancer Hypertension Depression Anxiety Mother CLL (chronic lymphocytic leukemia) Loud snoring Restless leg Hypertension Family/Other Sleep apnea Restless leg Social History household members: spouse Smoking Status: Never smoker alcohol intake: current Smoking Status: Never smoker alcohol intake frequency: holidays/special occasions only Alcohol type: beer Substance Use Type: does not use Exam Narrative Exam Narrative: GENERAL: in no distress, not toxic not dyspneic HEAD: Normocephalic. EYES: Pupils equal round No scleral icterus. ENT: Mucous membranes moist. NECK: Trachea midline. CARDIOVASCULAR: Regular rate and rhythm without murmurs RESPIRATORY: Clear to auscultation. Breath sounds equal bilaterally. No wheezes, rales, or rhonchi. Speaking full sentences. No respiratory distress. GASTROINTESTINAL: Abdomen soft, non-tender EXTREMITIES: No gross deformities. BACK: No flank tenderness. NEURO: AOx4. SKIN: Warm and dry PSYCH: Not anxious, is cooperative Initial Vital Signs Initial Vital Signs: Vital Signs Temperature 98.7 F 01/23/22 15:49 Pulse Rate 111 H 01/23/22 15:49 Respiratory Rate 24 01/23/22 15:49 Blood Pressure 128/79 01/23/22 15:49 Pulse Oximetry 95 01/23/22 15:49 Oxygen Delivery Method 01/23/22 15:49 Course Course Course Narrative: No new issues during course of stay Orders Ordered: ED Orders 01/23/22 15:53 EKG-12 Lead Routine 01/23/22 15:58 XR chest 1V Stat 01/23/22 16:09 C-Reactive Protein Quant Stat Complete Blood Count AUTO DIFF Stat Comprehensive Metabolic Panel Stat D Dimer Stat Ferritin Stat Lactate (Lactic Acid) Stat NT-proBNP (BNP-Adult 18+) Stat Procalcitonin Stat Troponin & CK Cardiac Panel Stat 01/23/22 16:18 COVID19 -Nasal RAPID/Pre-Proc Stat 01/23/22 16:46 Blood Culture Stat Reevaluation(s) Reevaluation #1: Patient desires COVID medication Paxlovid. Patient does understand it is UA. Experimental. Is cancer doctor has recommended to take it. He understands to hold his cancer medication and trazodone during this treatment. Not toxic at discharge. No dyspnea. Time: 20:52 Consultations Consultation #1: Spoke with [facility] Dr. Yang, patient should start Paxlovid and hold his acalbrutinib 5 days and may resume day 6 but should call office tomorrow for office appointment and confirming resuming his medication. Time: 20:51 Vital Signs Vital signs: Vital Signs - 8 hr 01/23/22 15:49 01/23/22 16:13 01/23/22 16:15 Temperature 98.7 F Pulse Rate 111 H 99 H Respiratory Rate 24 Blood Pressure 128/79 128/83 Pulse Oximetry 95 96 Oxygen Delivery Method Room Air 01/23/22 16:15 01/23/22 16:30 01/23/22 16:30 Temperature Pulse Rate 96 H 89 Respiratory Rate Blood Pressure 120/71 Pulse Oximetry 94 93 Oxygen Delivery Method 01/23/22 17:00 01/23/22 17:00 01/23/22 17:30 Temperature Pulse Rate 88 Respiratory Rate 23 Blood Pressure 101/60 134/70 Pulse Oximetry 92 Oxygen Delivery Method 01/23/22 17:30 01/23/22 18:00 01/23/22 18:00 Temperature Pulse Rate 91 H 91 H Respiratory Rate 21 24 Blood Pressure 133/85 Pulse Oximetry 93 92 Oxygen Delivery Method 01/23/22 18:30 01/23/22 18:30 Temperature Pulse Rate 88 Respiratory Rate Blood Pressure 113/69 Pulse Oximetry 92 Oxygen Delivery Method MDM - SOB/Dyspnea Differential Diagnosis Differential diagnosis: Likely community acquired pneumonia and other (COVID infection) Lab Data Result diagrams: 01/23/22 16:09 01/23/22 16:09 Labs: Lab Results 01/23/22 01/23/22 01/23/22 Range/Units 16:09 16:09 16:09 WBC 9.9 (4.5-11.0) X10^3/uL RBC 4.91 (4.5-5.9) X10^6/uL Hgb 15.4 (13.5-17.5) g/dL Hct 43.5 (41-53) % MCV 88.7 (80-100) fL MCH 31.3 (26-34) PG MCHC 35.3 (30-36) % RDW 12.9 (11.6-14.8) % Plt Count 91 L (150-400) X10^3/uL Neut % (Auto) 35.5 L (50-75) % Lymph % (Auto) 54.3 H (25-40) % [place] % (Auto) 9.7 (3-14) % Eos % (Auto) 0.0 L (2-4) % Baso % (Auto) 0.5 (0-2) % Neut # (Auto) 3500 (1153-2851) /uL Lymph # (Auto) 5400 H (6535-7675) /uL [place] # (Auto) 1000 H (0-900) /uL Eos # (Auto) 0 (0-450) /uL Baso # (Auto) 0 (0-100) /uL D-Dimer < 200 (<230) ng/mL Sodium 136 L (137-145) mmol/L Potassium 3.9 (3.4-5.1) mmol/L Chloride 104 (98-107) mmol/L Carbon Dioxide 24 (22-32) mmol/L BUN 18 (9-20) mg/dL Creatinine 1.19 (0.66-1.25) mg/dL Estimated GFR > 60 (>60) mL/min BUN/Creatinine Ratio 15.1 (6-22) Glucose 107 (80-110) mg/dL Lactate (0.7-2.1) mmol/L Calcium 8.6 (8.4-10.2) mg/dL Ferritin 146 (18-464) ng/mL Total Bilirubin 1.7 H (0.2-1.3) mg/dL AST 22 (17-59) IU/L ALT 21 (<50) IU/L Alkaline Phosphatase 64 (38-126) U/L Total Creatine Kinase 50 L (55-170) U/L CK-MB (CK-2) TNP CK-MB (CK-2) Rel Index TNP Troponin I < 0.012 (0.01-0.034) ng/mL C-Reactive Protein 3.9 H (<1.0) mg/dL NT-Pro-B Natriuret Pep 23 (<125) pg/mL Total Protein 6.6 (6.3-8.2) g/dL Albumin 4.1 (3.5-5.0) g/dL Globulin 2.5 (1.7-4.1) g/dL Albumin/Globulin Ratio 1.6 (1.0-2.8) Procalcitonin 0.18 (<0.5) ng/mL SARS-CoV-2 (PCR) (Negative) 01/23/22 01/23/22 Range/Units 16:09 16:18 WBC (4.5-11.0) X10^3/uL RBC (4.5-5.9) X10^6/uL Hgb (13.5-17.5) g/dL Hct (41-53) % MCV (80-100) fL MCH (26-34) PG MCHC (30-36) % RDW (11.6-14.8) % Plt Count (150-400) X10^3/uL Neut % (Auto) (50-75) % Lymph % (Auto) (25-40) % [place] % (Auto) (3-14) % Eos % (Auto) (2-4) % Baso % (Auto) (0-2) % Neut # (Auto) (2399-8645) /uL Lymph # (Auto) (2168-9593) /uL [place] # (Auto) (0-900) /uL Eos # (Auto) (0-450) /uL Baso # (Auto) (0-100) /uL D-Dimer (<230) ng/mL Sodium (137-145) mmol/L Potassium (3.4-5.1) mmol/L Chloride (98-107) mmol/L Carbon Dioxide (22-32) mmol/L BUN (9-20) mg/dL Creatinine (0.66-1.25) mg/dL Estimated GFR (>60) mL/min BUN/Creatinine Ratio (6-22) Glucose (80-110) mg/dL Lactate 1.1 (0.7-2.1) mmol/L Calcium (8.4-10.2) mg/dL Ferritin (18-464) ng/mL Total Bilirubin (0.2-1.3) mg/dL AST (17-59) IU/L ALT (<50) IU/L Alkaline Phosphatase (38-126) U/L Total Creatine Kinase (55-170) U/L CK-MB (CK-2) CK-MB (CK-2) Rel Index Troponin I (0.01-0.034) ng/mL C-Reactive Protein (<1.0) mg/dL NT-Pro-B Natriuret Pep (<125) pg/mL Total Protein (6.3-8.2) g/dL Albumin (3.5-5.0) g/dL Globulin (1.7-4.1) g/dL Albumin/Globulin Ratio (1.0-2.8) Procalcitonin (<0.5) ng/mL SARS-CoV-2 (PCR) Positive H (Negative) Imaging Data Chest x-ray: Radiologist's Impression: [address] [address] XRay Report Signed Patient: Morteza Ramírez MR#: [id number] : 1955 Acct:[id number] Age/Sex: 67 / M Date of Service: 01/23/22 Loc: ED Accession Number: [id number] ?? Procedure: XR chest 1V Ordering Provider: Brit Briceño D.O. PROCEDURE:? XR CHEST 1V ? INDICATIONS:? chest pain ? TECHNIQUE:? One view of the chest was acquired.? ? COMPARISON:? [facility], , CHEST 2 VIEW, 06/21/2015, 16:07. ? FINDINGS:? ? Surgical changes and devices:? None.? ? Lungs and pleura:? Lungs are clear.? No pleural effusions or pneumothorax.? ? Mediastinum:? Mediastinal contours appear normal.? Heart size is normal.? ? Bones and chest wall:? No suspicious bony lesions.? Overlying soft tissues appear unremarkable.? ? IMPRESSION:? No acute cardiopulmonary disease. ? ? Dictated by: Forrest Perez M.D. on 01/23/2022 at 16:21 ? ? Approved by: Forrest Perez M.D. on 01/23/2022 at 16:30 ? ECG Data Interpretation: Sinus tachycardia rate [address] elevation or depression MDM Narrative Medical decision making narrative: Appropriate for discharge home. Patient not requiring supplemental oxygen. No respiratory distress. He understands this is EUA experience will use administ ration and not approved by FDA. His oncology service has been contacted and recommend him have it. He does desire to have it. Risks and benefits reviewed with him. Allergic reaction not limited to this risk. Return precautions reviewed with him. Not toxic at discharge. Otherwise exam and laboratory studies and imaging are reassuring. Discharge Plan Departure Patient Disposition: Home Clinical Impression: COVID-19 Instructions: DI for COVID-19 (Suspected or Confirmed ) Activity Restrictions/Additional Instructions: You have been prescribed Paxlovid. Please do not take your cancer medication or trazodone while taking this medication. Call your office when to resume your home medication. Return if worse if any trouble breathing. Return if any allergic reaction as discussed. Any swelling or itching or throat swelling or tongue swelling. Stop this medication immediately and go to the emergency department. Prescriptions: New Paxlovid (EUA) 150 mg x 2- 100 mg tablet See Rx Instructions .ROUTE .COMPLEX Qty: 30 0RF Rx Instructions: take TWO 150 mg tablets of nirmatrelvir with ONE 100 mg tablet of ritonavir twice daily for 5 days No Action acalabrutinib 100 mg capsule 100 mg PO Q12H trazodone 50 mg tablet 50 mg PO BEDTIME PRN (Reason: Pain (Scale Score 1-3)) (DME) ResMed AirCurve 10 See Rx Instructions .ROUTE .MEDSUPPLY Rx Instructions: BIPAP IPAP: 16 EPAP: 10 PS: 4cmH2O DME: PHM Referrals: Carrie Garduno DO [Primary Care Provider] - Visit Report Forms: Patient Portal/API
== END 2022-01-23 21:14 | disposition home or self-care (01) ==
PROVIDERS: Emergency Medicine; Emergency Provider Emergency Medicine; PCP Family Medicine
DX: U07.1 COVID-19 (principal); R07.9 Chest pain, unspecified
CPT/HCPCS: 36415; 71045; 80053; 82550; 82728; 83605; 83880; 84145; 84484; 85025; 85379; 86140; 87040; 87635; 93005; 93010; 99284; C9803

== ENCOUNTER → 2022-06-15 11:42 | Outpatient (CLI) | payer MEDICARE, OTHER, SELFPAY ==
[2022-06-15 13:31] LABS: COVID19 -Nasal RAPID Negative (Negative)
== END ==
PROVIDERS: PCP Family Medicine; Visit Provider Surgery
DX: Z20.822 Contact with and (suspected) exposure to COVID-19 (principal); Z01.812 Encounter for preprocedural laboratory examination
CPT/HCPCS: 87635; C9803

== ENCOUNTER 2022-06-16 06:58 | Day surgery (SDC) | payer MEDICARE, OTHER, SELFPAY ==
[2022-06-16 07:28] VITALS: BP 131/91; PULSE 94; RESP 16; TEMP 36.3; O2SAT 96; BMI 29.4
[2022-06-16] MEDS: LACTATED RINGERS 1,000 ML 42 ML IV (07:28)
--- NOTE | 2022-06-16 07:31 | PM.PREOP ---
Pre-operative Note COVID-19 COVID-19 status: Negative Interval Note History & Physical reviewed/Exam performed by Physician: Yes Changes to H&P: No H&P completed within 30 days and has changed as indicated here:: of note, patient's father had colon cancer.
[2022-06-16 08:25] VITALS: BP 94/78; PULSE 87; RESP 16; TEMP 36.4; O2SAT 94
[2022-06-16 08:30] VITALS: BP 90/72; PULSE 84; RESP 16; O2SAT 95
--- NOTE | 2022-06-16 08:30 | SUR.PHASEI ---
Received to PACU after MAC. Report received from NIRAV Stephens and Dr Ulloa.
[2022-06-16 08:35] VITALS: BP 107/80; PULSE 88; RESP 12; O2SAT 95
[2022-06-16 08:40] VITALS: BP 117/83; PULSE 85; RESP 14; O2SAT 95
[2022-06-16 08:52] VITALS: BP 111/74; PULSE 87; RESP 12; TEMP 36.6; O2SAT 95
--- NOTE | 2022-06-16 08:59 | SUR.PHASEI ---
Pt with bilat hearing aids in place.
--- NOTE | 2022-06-16 12:25 | PM.OP.COLON ---
Procedure & Clinicians Study performed: Screening colonoscopy Same procedure as scheduled: Yes Indications: Family history of colorectal cancer. Surgeon: Viry Trinidad Procedure Notes Procedure in detail: Patient was taken to the endoscopy suite and placed in a left lateral decubitus position. A time-out was performed. Sedation was performed by Dr. Ulloa Anesthesiology. Digital rectal exam was performed there were no strictures or masses palpable. The colonoscope was advanced into the anal canal through the colon. And the sigmoid colon was reached. The [place] bowel prep score was 2 it was a good prep. Photograph was taken of the appendiceal orifice. Withdrawal time was 11 minutes. No polyps were seen no biopsies were taken. Five year follow-up is recommended with a family history of colon cancer. Complications: none
== END 2022-06-16 09:07 | disposition home or self-care (01) ==
PROVIDERS: PCP Family Medicine; Referring Provider Surgery; Visit Provider Surgery
PROC: 0DJD8ZZ Inspection of Lower Intestinal Tract, Via Natural or Artificial Opening Endoscopic (ICD-10-PCS; CPT 45378; principal; 2022-06-16 07:45)
DX: K59.00 Constipation, unspecified (principal); D64.9 Anemia, unspecified; R33.9 Retention of urine, unspecified; Z86.010 Personal history of colon polyps
CPT/HCPCS: 45378; J2704

== ENCOUNTER → 2022-06-20 11:23 | Outpatient (CLI) | payer MEDICARE, OTHER, SELFPAY ==
[2022-06-20 13:39] LABS: HEMOLYSIS < 15 (0-50)
[2022-06-20 13:40] LABS: Alanine Aminotransferase 27 IU/L (<50); Albumin 4.2 g/dL (3.5-5.0); Albumin Globulin Ratio 1.6 (1.0-2.8); Alkaline Phosphatase 58 U/L (38-126); Aspartate Aminotransferase 36 IU/L (17-59); BUN Creatinine Ratio 16.4 (6-22); Bilirubin Total 2.7 mg/dL (0.2-1.3); Blood Urea Nitrogen 18 mg/dL (9-20); Calcium 9.1 mg/dL (8.4-10.2); Carbon Dioxide 26 mmol/L (22-32); Chloride 106 mmol/L (98-107); Cholesterol 134 mg/dL (140-199); Estimated Glomerular Filt Rate > 60 mL/min (>60); Globulin 2.6 g/dL (1.7-4.1); Glucose 86 mg/dL (80-110); HDL Cholesterol 28 mg/dL (40-60); LDL Cholesterol Calculated 79 mg/dL (<100); Sodium 140 mmol/L (137-145); Total Protein 6.8 g/dL (6.3-8.2); Triglycerides 133 mg/dL (35-150)
[2022-06-20 14:09] LABS: Prostate Specific Antigen 2.47 ng/mL (0.10-4.00)
[2022-06-20 15:22] LABS: Hemoglobin A1C% w Est Avg Glu < 4.0 % (4.0-6.0)
== END ==
PROVIDERS: PCP Family Medicine; Referring Provider Family Medicine; Visit Provider Family Medicine
DX: C91.10 Chronic lymphocytic leukemia of B-cell type not having achieved remission (principal); E66.9 Obesity, unspecified; E29.1 Testicular hypofunction
CPT/HCPCS: 36415; 80053; 80061; 83036; 84153

== ENCOUNTER 2023-02-21 19:12 | Emergency (ER) | payer MEDICARE, OTHER, SELFPAY ==
[2023-02-21] VITALS (7 sets, daily range): BP systolic 123–142; BP diastolic 78–89; PULSE 84–98; RESP 17–27; TEMP 36.8; O2SAT 97–99; BMI 30.1
[2023-02-21] MEDS: HYDROMORPHONE 0.5 MG INJ IV (19:31)
[2023-02-21] MEDS: SODIUM CHLORIDE 0.9% 1,000 ML 1000 ML IV ×2 (19:31→20:46)
[2023-02-21 19:42] LABS: Add Manual Diff / Slide Review NO; Basophils Absolute Auto 100 /uL (0-100); Basophils Percent Auto 1.1 % (0-2); Eosinophils Absolute Auto 0 /uL (0-450); Eosinophils Percent Auto 0.1 % (2-4); Hematocrit 35.5 % (41-53); Hemoglobin 12.3 g/dL (13.5-17.5); Lymphocytes Absolute Auto 3100 /uL (1100-4500); Lymphocytes Percent Auto 50.3 % (25-40); Mean Corpuscular HGB Conc 34.8 % (30-36); Mean Corpuscular Hemoglobin 34.5 PG (26-34); Monocytes Absolute Auto 300 /uL (0-900); Monocytes Percent Auto 5.6 % (3-14); Neutrophils Absolute Auto 2600 /uL (1500-7000); Neutrophils Percent Auto 42.9 % (50-75); Platelet Count 95 X10^3/uL (150-400); Red Blood Cell Count 3.58 X10^6/uL (4.5-5.9); Red Cell Distribution Width 11.9 % (11.6-14.8); White Blood Cell Count 6.1 X10^3/uL (4.5-11.0)
[2023-02-21 19:44] LABS: Alanine Aminotransferase 20 IU/L (<50); Albumin 4.4 g/dL (3.5-5.0); Albumin Globulin Ratio 1.6 (1.0-2.8); Alkaline Phosphatase 70 U/L (38-126); Aspartate Aminotransferase 32 IU/L (17-59); BUN Creatinine Ratio 16.5 (6-22); Bilirubin Total 3.2 mg/dL (0.2-1.3); Blood Urea Nitrogen 20 mg/dL (9-20); Calcium 8.7 mg/dL (8.4-10.2); Carbon Dioxide 23 mmol/L (22-32); Chloride 103 mmol/L (98-107); Creatine Kinase 47 U/L (55-170); Estimated Glomerular Filt Rate > 60 mL/min (>60); Globulin 2.7 g/dL (1.7-4.1); Glucose 117 mg/dL (80-110); HEMOLYSIS 33 (0-50); Potassium 4.1 mmol/L (3.4-5.1); Sodium 136 mmol/L (137-145); Total Protein 7.1 g/dL (6.3-8.2)
[2023-02-21 19:45] LABS: Lactate (Lactic Acid) 2.5 mmol/L (0.7-2.1)
[2023-02-21 19:49] LABS: Phosphorous 3.6 mg/dL (2.3-3.7); Uric Acid 3.5 mg/dL (3.5-8.5)
[2023-02-21 19:56] LABS: Troponin I < 0.012 ng/mL (0.01-0.034)
--- NOTE | 2023-02-21 20:54 | ED.RECABL ---
HPI - Recheck/Abnormal Lab/Rx General Chief Complaint: Recheck/Abnormal Lab/Rx Stated Complaint: pain, possible reaction to medicine Time Seen by Provider: 02/21/23 19:25 Source: patient Mode of arrival: Wheelchair History of Present Illness HPI narrative: Patient is a 68-year-old male with history of CLL who recently started new medication Venclexta yesterday. He was told to drink a lot of water with it he only had about half water he was supposed to today because he was so tired and fell asleep. He woke up around 5:00 p.m. with severe back pain very uncomfortable all over muscle aches and body aches. No fever or chills. No specific chest pain cough or shortness of breath. Related Data Home Medications Medication Instructions Recorded Confirmed acalabrutinib 100 mg capsule 100 mg PO Q12H 03/13/18 12/01/22 trazodone 50 mg tablet 50 mg PO BEDTIME PRN Pain (Scale 12/31/19 12/01/22 Score 1-3) ResMed AirCurve 10 07/27/21 12/01/22 Previous Rx's Medication Instructions Recorded hydroxyzine HCl 10 mg tablet 10 mg PO Q8H PRN itching #30 tabs 06/17/22 methylprednisolone 4 mg tablets in See Rx Instructions PO PER PKG DIR 06/17/22 a dose pack (Medrol (Candido)) #21 ea triamcinolone acetonide 0.1 % 1 applic topical BID #453.6 grams 06/17/22 topical ointment Allergies Allergy/AdvReac Type Severity Reaction Status Date / Time house dust Allergy Mild sneezing, Verified 12/01/22 13:32 runny nose hay Allergy Mild sneezing, Uncoded 12/01/22 13:32 runny nose Review of Systems Review of Systems ROS Unobtainable: All systems reviewed & are unremarkable except as noted in HPI and below Patient History Medical History Allergic rhinitis Anxiety Arm fracture, right (~1985) CLL (chronic lymphocytic leukemia) (~05/2010) Colon polyps Complex sleep apnea syndrome Excessive daytime sleepiness Insomnia, psychophysiological Kidney stone Knee pain (04/2012) Low testosterone Obstructive sleep apnea, adult Osteopenia Squamous cell carcinoma Surgical History Hx of colonoscopy with polypectomy (07/2013) Hx of squamous cell carcinoma excision Family History Father Cancer Hypertension Depression Anxiety Mother CLL (chronic lymphocytic leukemia) Loud snoring Restless leg Hypertension Family/Other Sleep apnea Restless leg Social History household members: spouse Smoking Status: Never smoker alcohol intake: current Smoking Status: Never smoker alcohol intake frequency: holidays/special occasions only Alcohol type: beer Substance Use Type: does not use Exam Initial Vital Signs Initial Vital Signs: Vital Signs Temperature 98.3 F 02/21/23 19:19 Pulse Rate 92 H 02/21/23 19:19 Respiratory Rate 18 02/21/23 19:19 Blood Pressure 140/89 02/21/23 19:19 Pulse Oximetry 99 02/21/23 19:19 Oxygen Delivery Method Room Air 02/21/23 19:19 GENERAL: Alert 68-year-old male and in no acute distress. HEENT: Head atraumatic,EOMI, pupils reactive, face symmetric, moist mucous membranes CARDIOVASCULAR: Regular rate and rhythm without murmurs, rubs or gallops. RESPIRATORY: Breath sounds equal bilaterally, no wheezes rales or rhonchi. ABDOMEN: Soft, nontender. Normoactive bowel sounds all 4 quadrants. No guarding or rebound. EXTREMITIES: Normal range of motion, no clubbing or edema. Neurovascularly intact NEUROLOGICAL: Alert and oriented x4. SKIN: Warm, dry, no laceration, no petechiae, no rashes or lesions. Course Orders Ordered: ED Orders 02/21/23 19:20 CBC Auto Diff [Complete Blood Count AUTO DIFF] Stat CMP [Comprehensive Metabolic Panel] Stat Lactate (Lactic Acid) Stat PHOS [Phosphorous] Stat Troponin & CK Cardiac Panel Stat Uric Acid Stat Discontinued Medications Hydromorphone HCl (Hydromorphone 0.5 Mg Inj) 0.5 mg IV NOW ONE Stop: 02/21/23 19:26 Last Admin: 02/21/23 19:31 Dose: 0.5 mg Documented By: KLS Sodium Chloride (Normal Saline 0.9%) 1,000 mls @ 1,000 mls/hr IV BOLUS ONE Stop: 02/21/23 20:25 Last Infusion: 02/21/23 20:39 Dose: 0 mls/hr Documented By: Admin: 02/21/23 19:31 Dose: 1,000 mls/hr Documented By: RIKKI Sodium Chloride (Normal Saline 0.9%) 1,000 mls @ 1,000 mls/hr IV BOLUS ONE Stop: 02/21/23 21:44 Last Infusion: 02/21/23 21:32 Dose: 0 mls/hr Documented By: Admin: 02/21/23 20:46 Dose: 1,000 mls/hr Documented By: JESSICA Vital Signs Vital signs: Vital Signs - 8 hr 02/21/23 19:19 02/21/23 19:20 02/21/23 19:30 Temperature 98.3 F Pulse Rate 92 H 89 Respiratory Rate 18 25 H Blood Pressure 140/89 123/86 Pulse Oximetry 99 99 Oxygen Delivery Method Room Air Room Air 02/21/23 19:30 02/21/23 20:00 02/21/23 20:00 Temperature Pulse Rate 98 H 85 Respiratory Rate 21 23 Blood Pressure 142/82 H Pulse Oximetry 98 97 Oxygen Delivery Method Room Air 02/21/23 20:30 02/21/23 20:30 02/21/23 21:00 Temperature Pulse Rate 89 Respiratory Rate 27 H Blood Pressure 138/80 132/78 Pulse Oximetry 97 Oxygen Delivery Method 02/21/23 21:00 02/21/23 21:30 02/21/23 21:30 Temperature Pulse Rate 84 89 Respiratory Rate 17 22 Blood Pressure 130/81 Pulse Oximetry 98 97 Oxygen Delivery Method MDM - Recheck/Abnormal Lab/Rx Lab Data 02/21/23 19:20 02/21/23 19:20 Labs: Lab Results 02/21/23 02/21/23 02/21/23 Range/Units 19:20 19:20 19:20 WBC 6.1 (4.5-11.0) X10^3/uL RBC 3.58 L (4.5-5.9) X10^6/uL Hgb 12.3 L (13.5-17.5) g/dL Hct 35.5 L (41-53) % MCV 99.0 (80-100) fL MCH 34.5 H (26-34) PG MCHC 34.8 (30-36) % RDW 11.9 (11.6-14.8) % Plt Count 95 L (150-400) X10^3/uL Neut % (Auto) 42.9 L (50-75) % Lymph % (Auto) 50.3 H (25-40) % [place] % (Auto) 5.6 (3-14) % Eos % (Auto) 0.1 L (2-4) % Baso % (Auto) 1.1 (0-2) % Neut # (Auto) 2600 (9430-4058) /uL Lymph # (Auto) 3100 (7209-4283) /uL [place] # (Auto) 300 (0-900) /uL Eos # (Auto) 0 (0-450) /uL Baso # (Auto) 100 (0-100) /uL Sodium 136 L (137-145) mmol/L Potassium 4.1 (3.4-5.1) mmol/L Chloride 103 (98-107) mmol/L Carbon Dioxide 23 (22-32) mmol/L BUN 20 (9-20) mg/dL Creatinine 1.21 (0.66-1.25) mg/dL Estimated GFR > 60 (>60) mL/min BUN/Creatinine Ratio 16.5 (6-22) Glucose 117 H (80-110) mg/dL Lactate (0.7-2.1) mmol/L Uric Acid 3.5 (3.5-8.5) mg/dL Calcium 8.7 (8.4-10.2) mg/dL Phosphorus 3.6 (2.3-3.7) mg/dL Total Bilirubin 3.2 H (0.2-1.3) mg/dL AST 32 (17-59) IU/L ALT 20 (<50) IU/L Alkaline Phosphatase 70 (38-126) U/L Total Creatine Kinase (55-170) U/L Troponin I (0.01-0.034) ng/mL Total Protein 7.1 (6.3-8.2) g/dL Albumin 4.4 (3.5-5.0) g/dL Globulin 2.7 (1.7-4.1) g/dL Albumin/Globulin Ratio 1.6 (1.0-2.8) 02/21/23 02/21/23 Range/Units 19:20 19:20 WBC (4.5-11.0) X10^3/uL RBC (4.5-5.9) X10^6/uL Hgb (13.5-17.5) g/dL Hct (41-53) % MCV (80-100) fL MCH (26-34) PG MCHC (30-36) % RDW (11.6-14.8) % Plt Count (150-400) X10^3/uL Neut % (Auto) (50-75) % Lymph % (Auto) (25-40) % [place] % (Auto) (3-14) % Eos % (Auto) (2-4) % Baso % (Auto) (0-2) % Neut # (Auto) (7721-6693) /uL Lymph # (Auto) (8707-3061) /uL [place] # (Auto) (0-900) /uL Eos # (Auto) (0-450) /uL Baso # (Auto) (0-100) /uL Sodium (137-145) mmol/L Potassium (3.4-5.1) mmol/L Chloride (98-107) mmol/L Carbon Dioxide (22-32) mmol/L BUN (9-20) mg/dL Creatinine (0.66-1.25) mg/dL Estimated GFR (>60) mL/min BUN/Creatinine Ratio (6-22) Glucose (80-110) mg/dL Lactate 2.5 H (0.7-2.1) mmol/L Uric Acid (3.5-8.5) mg/dL Calcium (8.4-10.2) mg/dL Phosphorus (2.3-3.7) mg/dL Total Bilirubin (0.2-1.3) mg/dL AST (17-59) IU/L ALT (<50) IU/L Alkaline Phosphatase (38-126) U/L Total Creatine Kinase 47 L (55-170) U/L Troponin I < 0.012 (0.01-0.034) ng/mL Total Protein (6.3-8.2) g/dL Albumin (3.5-5.0) g/dL Globulin (1.7-4.1) g/dL Albumin/Globulin Ratio (1.0-2.8) MDM Narrative Medical decision making narrative: Patient is 68-year-old male with CLL who took a new medication yesterday. He is having all over muscle aches which are side effects. There is no evidence of tumor lysis syndrome normal phosphorus and uric acid electrolytes are within normal limits. Lactate mildly elevated at 2.5. He is given 2 L of IV fluids and Dilaudid. He is no evidence of neutropenia not febrile. Likely all side effects from chemotherapy. Labs have been reviewed without significant clinical abnormalities. He is thrombocytopenic with platelets of 95 which is to be expected. Bilirubin mildly elevated at 3.2 without elevated liver enzymes or abdominal pain. CPK does not show any evidence of rhabdomyolysis. Patient overall feeling significantly better and ready and able to go. Discharge Plan Departure Patient Disposition: Home Clinical Impression: Medication reaction Instructions: DI for Adverse Drug Reaction -- Other Activity Restrictions/Additional Instructions: *You have been diagnosed with adverse drug reaction *What to do: You are likely having the side effects of your new chemo medication. Please stay hydrated. Talk with your Oncologist. *Continue to take medications as directed *Follow up with your primary care provider in 2-3 days or call [phone] *Return to ER if you should have increasing pain nausea vomiting fever greater than 100.4 or any new, worsening or concerning symptoms Prescriptions: No Action methylprednisolone [Medrol (Candido)] 4 mg tablets,dose pack See Rx Instructions PO PER PKG DIR Qty: 21 0RF Rx Instructions: PO PER PKG DIR triamcinolone acetonide 0.1 % ointment 1 applic topical BID Qty: 453.6 1RF hydroxyzine HCl 10 mg tablet 10 mg PO Q8H PRN (Reason: itching) Qty: 30 0RF acalabrutinib 100 mg capsule 100 mg PO Q12H trazodone 50 mg tablet 50 mg PO BEDTIME PRN (Reason: Pain (Scale Score 1-3)) (DME) ResMed AirCurve 10 See Rx Instructions .Route .MEDSUPPLY Rx Instructions: BIPAP IPAP: 16 EPAP: 10 PS: 4cmH2O DME: PHM Referrals: Carrie Garduno DO [Primary Care Provider] - Stand Alone Forms: Patient Portal/API
[2023-02-21 21:34] LABS: Reflexed Lactate in 2 Hours Y
== END 2023-02-21 21:46 | disposition home or self-care (01) ==
PROVIDERS: Emergency Provider Emergency Medicine; PCP Family Medicine; Referring Provider Internal Medicine Medical Oncology
DX: M54.9 Dorsalgia, unspecified (principal); T50.995A Adverse effect of other drugs, medicaments and biological substances, initial encounter
CPT/HCPCS: 36415; 80053; 82550; 83605; 84100; 84484; 84550; 85025; 96361; 96374; 99284; J1170

== ENCOUNTER → 2023-03-02 07:00 | Outpatient (CLI) | payer MEDICARE, OTHER, SELFPAY ==
[2023-03-02 09:17] LABS: Alanine Aminotransferase 40 IU/L (<50); Albumin 3.5 g/dL (3.5-5.0); Albumin Globulin Ratio 1.6 (1.0-2.8); Alkaline Phosphatase 76 U/L (38-126); Aspartate Aminotransferase 28 IU/L (17-59); BUN Creatinine Ratio 10.9 (6-22); Bilirubin Total 2.3 mg/dL (0.2-1.3); Blood Urea Nitrogen 13 mg/dL (9-20); Calcium 8.7 mg/dL (8.4-10.2); Carbon Dioxide 27 mmol/L (22-32); Chloride 103 mmol/L (98-107); Estimated Glomerular Filt Rate > 60 mL/min (>60); Globulin 2.2 g/dL (1.7-4.1); Glucose 90 mg/dL (80-110); HEMOLYSIS < 15 (0-50); Hematocrit 25.4 % (41-53); Hemoglobin 8.3 g/dL (13.5-17.5); Lactate Dehydrogenase 351 U/L (120-246); Mean Corpuscular HGB Conc 32.6 % (30-36); Mean Corpuscular Hemoglobin 33.2 PG (26-34); Mean Corpuscular Volume 101.7 fL (80-100); Platelet Count 133 X10^3/uL (150-400); Potassium 3.7 mmol/L (3.4-5.1); Red Cell Distribution Width 14.2 % (11.6-14.8); Sodium 136 mmol/L (137-145); Total Protein 5.7 g/dL (6.3-8.2); Uric Acid 4.3 mg/dL (3.5-8.5); White Blood Cell Count 26.4 X10^3/uL (4.5-11.0)
[2023-03-02 09:26] LABS: Add Manual Diff / Slide Review YES
[2023-03-02 09:42] LABS: Neutrophils Absolute Manual 528 /uL (3000-5900); Total Cells Counted 100
[2023-03-02 09:45] LABS: Anisocytosis 2+; Macrocytosis 1+; Polychromasia 1+; Rouleaux 1+
== END ==
PROVIDERS: PCP Family Medicine; Referring Provider Internal Medicine Medical Oncology; Visit Provider Internal Medicine Medical Oncology
DX: C91.10 Chronic lymphocytic leukemia of B-cell type not having achieved remission (principal)
CPT/HCPCS: 36415; 80053; 83615; 84550; 85007; 85025

== ENCOUNTER → 2023-03-05 07:19 | Outpatient (CLI) | payer MEDICARE, OTHER, SELFPAY ==
[2023-03-05 08:58] LABS: Hematocrit 29.3 % (41-53); Hemoglobin 9.6 g/dL (13.5-17.5); Mean Corpuscular HGB Conc 32.8 % (30-36); Mean Corpuscular Hemoglobin 34.1 PG (26-34); Platelet Count 193 X10^3/uL (150-400); Red Blood Cell Count 2.82 X10^6/uL (4.5-5.9); Red Cell Distribution Width 15.5 % (11.6-14.8); White Blood Cell Count 28.4 X10^3/uL (4.5-11.0)
[2023-03-05 08:59] LABS: Add Manual Diff / Slide Review YES
[2023-03-05 09:19] LABS: Neutrophils Absolute Manual 852 /uL (3000-5900); Total Cells Counted 100
[2023-03-05 09:20] LABS: Anisocytosis 1+
[2023-03-05 09:29] LABS: Alanine Aminotransferase 26 IU/L (<50); Albumin 4.1 g/dL (3.5-5.0); Albumin Globulin Ratio 1.8 (1.0-2.8); Alkaline Phosphatase 87 U/L (38-126); Aspartate Aminotransferase 25 IU/L (17-59); Blood Urea Nitrogen 13 mg/dL (9-20); Calcium 9.6 mg/dL (8.4-10.2); Carbon Dioxide 25 mmol/L (22-32); Chloride 103 mmol/L (98-107); Estimated Glomerular Filt Rate > 60 mL/min (>60); Globulin 2.3 g/dL (1.7-4.1); Glucose 97 mg/dL (80-110); HEMOLYSIS < 15 (0-50); Lactate Dehydrogenase 385 U/L (120-246); Potassium 4.1 mmol/L (3.4-5.1); Sodium 137 mmol/L (137-145); Total Protein 6.4 g/dL (6.3-8.2)
== END ==
PROVIDERS: PCP Family Medicine; Referring Provider Internal Medicine Medical Oncology; Visit Provider Internal Medicine Medical Oncology
DX: C91.10 Chronic lymphocytic leukemia of B-cell type not having achieved remission (principal)
CPT/HCPCS: 36415; 80053; 83615; 84550; 85007; 85025

== ENCOUNTER → 2023-12-21 13:34 | Outpatient (CLI) | payer OTHER, MEDICARE, SELFPAY ==
--- NOTE | 2023-12-21 13:38 | DI.US.S_ITS ---
LIMITED ULTRASOUND OF RIGHT BREAST: 12/21/2023 CLINICAL: Follow up from addtional views. Comparison is made to exam dated: 12/21/2023 mammogram - [facility]. Color flow and real-time ultrasound of the right breast 12 o'clock region were performed. There is a 0.5 cm x 0.5 cm x 0.3 cm oval hypoechoic mass with a circumscribed margin in the right breast at 12 o'clock posterior depth 2 cm from the nipple. This correlates with mammography findings. Color flow imaging demonstrates that there is no vascularity present. IMPRESSION: SUSPICIOUS OF MALIGNANCY Right breast 0.5 cm oval mass at 12 o'clock at distance of 2 cm from the nipple. Finding is suspicious. Recommend ultrasound guided core biopsy. Findings and recommendations were discussed with the patient by phone at the time of imaging completion. This exam was interpreted at Station ID: [id number]. Electronically Signed By: Chanda Murray M.D., Ph.D. eb/:12/21/2023 15:20:49 letter sent: Biopsy Required Ultrasound BI-RADS: 4 Suspicious for malignancy
--- NOTE | 2023-12-21 13:38 | DI.MG.S_ITS ---
MALE BILATERAL DIGITAL DIAGNOSTIC MAMMOGRAM 3D/2D: 12/21/2023 CLINICAL: Right breast mass. No prior exams were available for comparison. There is a 0.5 cm oval mass with a circumscribed margin in the right breast at 12 o'clock middle depth. No other significant masses, calcifications, or other findings are seen in either breast. IMPRESSION: INCOMPLETE: NEEDS ADDITIONAL IMAGING EVALUATION The 0.5 cm oval mass in the right breast is indeterminate. An ultrasound is recommended for further evaluation and is scheduled to immediately follow this examination. This exam was interpreted at Station ID: [id number]. NOTE: For mammograms, a report in lay terms will be sent to the patient. Approximately 15% of breast malignancies will not be visualized mammographically. In the management of a palpable breast mass, a negative mammogram must not discourage biopsy of a clinically suspicious lesion. Electronically Signed By: Chanda Murray M.D., Ph.D. eb/:12/21/2023 15:13:26 ACR BI-RADS Category 0: Incomplete [id number]
== END ==
LOC: MAMMO 13:37
PROVIDERS: PCP Family Medicine; Referring Provider Family Medicine; Visit Provider Family Medicine
DX: R92.8 Other abnormal and inconclusive findings on diagnostic imaging of breast (principal); C91.10 Chronic lymphocytic leukemia of B-cell type not having achieved remission; N63.15 Unspecified lump in the right breast, overlapping quadrants
CPT/HCPCS: 76642; 77066; G0279

== ENCOUNTER → 2024-01-17 09:32 | Outpatient (CLI) | payer MEDICARE, OTHER, SELFPAY ==
--- NOTE | 2024-01-17 09:34 | DI.US.S_ITS ---
PROCEDURE: US BX BREAST PERC W VAC DEVICE COMPARISON: None. INDICATIONS: RIGHT BREAST MASS FINDING/IMPRESSION: Successful biopsy of a mass within the right breast at the 12 o'clock position. An ultrasound image post clip placement is not provider . However, the clip is approximately 1.3 cm posterior to the mass and 1.2 cm medial to the mass. Therefore, localization should be done under ultrasound rather than mammography . Dictated by: Tha Narayanan M.D. on 01/17/2024 at 16:07 Approved by: Tha Narayanan M.D. on 01/17/2024 at 16:12
--- NOTE | 2024-01-17 09:35 | DI.MG.S_ITS ---
MALE UNILATERAL RIGHT DIGITAL DIAGNOSTIC MAMMOGRAM 3D/2D POST-PROCEDURE IMAGING FOR MARKER PLACEMENT: 01/17/2024 CLINICAL: Right breast mass. Comparison is made to exam dated: 12/21/2023 mammogram - [facility]. There is a marker clip slightyly offset from the probable mass in the right breast at 12 o'clock posterior depth. The marker is located 1.2 cm medial and 1.3 cm posterior to the visible mass. IMPRESSION: POST PROCEDURE MAMMOGRAM FOR MARKER PLACEMENT There was a marker clip placement in the right breast posterior depth. This appears slightly offset as described above. Consider localization with ultrasound for the mass rather than mammogram localization of the marker if excision is intended. This exam was interpreted at Station ID: [id number]. NOTE: For mammograms, a report in lay terms will be sent to the patient. Approximately 15% of breast malignancies will not be visualized mammographically. In the management of a palpable breast mass, a negative mammogram must not discourage biopsy of a clinically suspicious lesion. Electronically Signed By: Lucinda fitzpatrick/:01/17/2024 16:44:28 ACR BI-RADS Category Post-procedure mammogram for marker placement
--- NOTE | 2024-01-17 11:30 | PATH_ITS ---
[facility] Accession Number: [id number] No. of containers..01 Tissue . 01 Material submitted: . breast - RT BREAST 12:00 3 CM FN . 01 Diagnosis: RIGHT BREAST, 12 O'CLOCK 3 CM FN, CORE NEEDLE BIOPSY: Fragments of connective tissue with reactive changes, lymphoid aggregates and adipose tissue. Breast ductal or lobular tissue is not identified. No evidence of malignancy. Please see comment. MRV 01/23/2024 1446 Local . 01 Comment: The morphologic appearance could be compatible with an intramammary lymph node, but could also represent reactive changes in the setting of injury (ie. ruptured epidermoid cyst). Correlation with radiologic findings is recommended. . 01 Electronically signed: . Angelica Deloen MD, Pathologist NPI- [id number] . 01 Gross description: . Received in formalin with two identifiers and right breast 12 o'clock 3 cm FN, are multiple red-brown to garcia soft tissue fragments aggregating to 3.0 x 1.4 x 0.3 cm. Inked blue, filtered, and submitted entirely in cassette A1. . The specimen was removed on 01/17/2024 at 1131 hours, time in formalin not provided, cold ischemic time cannot be calculated. Total fixation time is approximately 38 hours. ([id number]) /JOHN 01/18/2024 0854 Local . 01 Microscopic: . An immunohistochemical stain for cytokeratin GABBY was performed to evalute cells of interest and is negative. The control stain showed appropriate reactivity. . * This test was developed and its performance characteristics determined by [facility]. It has not been cleared or approved by the U.S. Food and Drug Administration. The FDA has determined that such clearance or approval is not necessary. This test is used for clinical purposes. It should not be regarded as investigational or for research. . 01 Pathologist provided ICD-10: N63.10 . 01 CPT . 593102, E97238 Specimen Comment: A courtesy copy of this report has been sent to [facility] Pathology Performed at: [address] [id number] MD Cortez Rock MD Phone: [phone]
== END ==
PROVIDERS: PCP Family Medicine; Referring Provider Internal Medicine Medical Oncology; Visit Provider Internal Medicine Medical Oncology
DX: R92.8 Other abnormal and inconclusive findings on diagnostic imaging of breast (principal); N63.15 Unspecified lump in the right breast, overlapping quadrants; R92.341 Mammographic extreme density, right breast
CPT/HCPCS: 19083; 77065

== ENCOUNTER → 2024-05-20 13:26 | Outpatient (CLI) | payer MEDICARE, OTHER, SELFPAY ==
--- NOTE | 2024-05-20 13:27 | DI.MG.S_ITS ---
MALE UNILATERAL RIGHT DIGITAL DIAGNOSTIC MAMMOGRAM 3D/2D: 05/20/2024 CLINICAL: New Right breast lump located of Cat scan. 04/2024. Comparison is made to exams dated: 01/17/2024 mammogram, 12/21/2023 mammogram, 01/17/2024 ultrasound biopsy, and 12/21/2023 ultrasound - [facility]. The breasts are almost entirely fatty (category a/<25% glandular tissue). There is a stable oval mass in the right breast at 12 o'clock posterior depth. Adjacent biopsy clip. No other significant masses or calcifications are seen in the breast. IMPRESSION: INCOMPLETE: NEED ADDITIONAL IMAGING EVALUATION The stable oval mass in the right breast is indeterminate. A targeted ultrasound is recommended and will immediately follow. This exam was interpreted at Station ID: [id number]. NOTE: For mammograms, a report in lay terms will be sent to the patient. Approximately 15% of breast malignancies will not be visualized mammographically. In the management of a palpable breast mass, a negative mammogram must not discourage biopsy of a clinically suspicious lesion. Electronically Signed By: Brian Cisneros M.D. [facility] [place]/:05/20/2024 14:56:44 letter sent: Additional Imaging Needed ACR BI-RADS Category 0: Incomplete: Need Additional Imaging Evaluation
--- NOTE | 2024-05-20 13:27 | DI.US.S_ITS ---
LIMITED ULTRASOUND OF RIGHT BREAST AND AXILLA: 05/20/2024 CLINICAL: Patient returns today to evaluate an asymmetry in the right breast. Comparison is made to exams dated: 05/20/2024 mammogram, 01/17/2024 ultrasound biopsy, 01/17/2024 mammogram, 12/21/2023 ultrasound, and 12/21/2023 mammogram - [facility]. Color flow and Doppler ultrasound of the right breast 12 o'clock, and axilla regions were performed. Martinez scale images of the real-time examination were reviewed. There is a 0.6 cm x 0.6 cm x 0.5 cm oval mass in the right breast at 12 o'clock posterior depth 3 cm from the nipple. This oval mass is hypoechoic with no posterior acoustic shadowing or enhancement. This abnormality is increased in size and correlates with the previous biopsy. No significant abnormalities were seen sonographically in the right axilla. IMPRESSION: SUSPICIOUS The 0.6 cm x 0.6 cm x 0.5 cm oval mass in the right breast is at a low suspicion for malignancy. An ultrasound guided biopsy is recommended. No enlarged right axillary lymph nodes. Exam findings were conveyed to the patient. This exam was interpreted at Station ID: [id number]. Electronically Signed By: Brian Cisneros M.D. [facility] [place]/:05/20/2024 15:41:12 letter sent: Biopsy Required ACR BI-RADS Category 4A: Suspicious
== END ==
PROVIDERS: PCP Family Medicine; Referring Provider Student in an Organized Health Care Education/Training Program; Visit Provider Student in an Organized Health Care Education/Training Program
DX: R92.8 Other abnormal and inconclusive findings on diagnostic imaging of breast (principal); C91.10 Chronic lymphocytic leukemia of B-cell type not having achieved remission; N63.15 Unspecified lump in the right breast, overlapping quadrants; R92.313 Mammographic fatty tissue density, bilateral breasts
CPT/HCPCS: 76642; 77065; G0279

== ENCOUNTER → 2024-06-12 13:42 | Outpatient (CLI) | payer MEDICARE, OTHER, SELFPAY ==
[2024-06-12 14:36] LABS: Influenza A - CEPHEID Flu A NEGATIVE (NEGATIVE); Influenza B - CEPHEID Flu B NEGATIVE (NEGATIVE); Respiratory Syncytial Virus Negative (Negative)
[2024-06-12 14:38] LABS: COVID-19 CEPHEID 4-PLEX PCR Negative (Negative)
== END ==
PROVIDERS: PCP Family Medicine; Visit Provider Physician Assistant Medical
DX: R05.9 Cough, unspecified (principal); R50.9 Fever, unspecified
CPT/HCPCS: 0241U

== ENCOUNTER → 2024-06-12 14:03 | Outpatient (CLI) | payer MEDICARE, OTHER, SELFPAY ==
--- NOTE | 2024-06-12 14:06 | DI.RAD.S_ITS ---
PROCEDURE: XR CHEST 2V INDICATIONS: cough,fever x 8 days. Hx CLL. R/O pneumonia TECHNIQUE: 2 views of the chest were acquired. COMPARISON: [facility], CR, XR CHEST 1V, 01/23/2022, 15:57. FINDINGS: Surgical changes and devices: None. Lungs and pleura: Lungs are clear. No pleural effusions or pneumothorax. Mediastinum: Mediastinal contours are normal. Heart size is normal. Bones and chest wall: No suspicious bony abnormalities. Soft tissues appear unremarkable. IMPRESSION: No acute cardiopulmonary pathology. Dictated by: Mandeep Bro M.D. on 06/12/2024 at 14:38 Approved by: Mandeep Bro M.D. on 06/12/2024 at 14:38
== END ==
PROVIDERS: PCP Family Medicine; Referring Provider Physician Assistant Medical; Visit Provider Physician Assistant Medical
DX: R05.9 Cough, unspecified (principal); R50.9 Fever, unspecified
CPT/HCPCS: 0241U; 71046

== ENCOUNTER → 2024-08-06 | Outpatient (CLI) | payer MEDICARE, OTHER, SELFPAY ==
--- NOTE | 2024-08-06 | DI.MG.S_ITS ---
MALE UNILATERAL RIGHT DIGITAL DIAGNOSTIC MAMMOGRAM 3D/2D POST-PROCEDURE IMAGING FOR MARKER PLACEMENT: 08/06/2024 CLINICAL: Post right breast ultrasound biopsy, clip placement imaging. Comparison is made to exams dated: 05/20/2024 ultrasound, 05/20/2024 mammogram, and 01/17/2024 mammogram - [facility]. The breasts are almost entirely fatty (category a/<25% glandular tissue). There is a 0.6 cm x 0.6 cm x 0.5 cm mass in the right breast at 12 o'clock posterior depth 3 cm from the nipple. There also is a marker clip in the appropriate position in the right breast at 12 o'clock posterior depth. No other significant masses or calcifications are seen in the breast. IMPRESSION: SUSPICIOUS The 0.6 cm x 0.6 cm x 0.5 cm mass in the right breast at 12 o'clock posterior depth needs additional evaluation. There was a successful marker clip placement in the right breast at 12 o'clock posterior depth. This exam was interpreted at Station ID: [id number]. NOTE: For mammograms, a report in lay terms will be sent to the patient. Approximately 15% of breast malignancies will not be visualized mammographically. In the management of a palpable breast mass, a negative mammogram must not discourage biopsy of a clinically suspicious lesion. Electronically Signed By: Angel white/jon:08/09/2024 06:50:06 ACR BI-RADS Category 4A: Suspicious
--- NOTE | 2024-08-06 12:56 | DI.US.S_ITS ---
ULTRASOUND GUIDED BIOPSY RIGHT BREAST USING VACUUM DEVICE WITH MARKING DEVICE INSERTED: 08/06/2024 CLINICAL: Right breast mass. PATIENT CONSENT: Risks (minor bleeding, infection, vasovagal reaction and repeat procedure), benefits and alternatives were explained to the patient and written informed consent was obtained. Correlation is made to exams dated: 08/06/2024 mammogram, 05/20/2024 ultrasound, 05/20/2024 mammogram, 01/17/2024 ultrasound biopsy, 01/17/2024 mammogram, and 12/21/2023 [facility]. An ultrasound guided biopsy using real-time ultrasound was performed for the 0.6 cm x 0.6 cm x 0.5 cm mass located in the right breast at 12 o'clock posterior depth 3 cm from the nipple. The skin was prepped in the usual manner. The abnormality was approached from the lateral aspect. A biopsy needle was placed adjacent to the abnormality under ultrasound guidance. Once the needle was documented to be in the correct location, a specimen was obtained using a vacuum assisted device. A clip was inserted into the biopsy cavity. The specimen was sent to the laboratory for pathological analysis. IMPRESSION: ULTRASOUND GUIDED BIOPSY MALIGNANT Ultrasound guided biopsy of the 0.6 cm x 0.6 cm x 0.5 cm mass in the right breast at 12 o'clock posterior depth 3 cm from the nipple was successful. Pathology indicates No breast parenchyma present. Atypical T-cell infiltrate. Histologic sections show an atypical lymphoid infiltrate in a dense sclerotic background....The infiltrative pattern and cytologic atypia are of concern, but the clinical presentation is unusual for a peripheral T-cell lymphoma. Staging and careful monitoring with re-biopsy if additional lesions are identified with flow cytometry and molecular studies are recommended. Pathology is concerning for malignancy and is concordant with imaging findings. Recommend clinical follow up with further staging and monitoring as recommended by Pathology. Consider hematology/oncology referral. This exam was interpreted at Station ID: [id number]. Angel Murray M.D., Ph.D. [place]/:09/09/2024 08:42:37
--- NOTE | 2024-08-06 14:13 | PATH_ITS ---
[facility] Accession Number: [id number] No. of containers..01 Tissue . 01 Material submitted: . breast - RT BREAST 12:00 CMFN X3 . 01 Diagnosis: RIGHT BREAST, 12 O'CLOCK, 2 CM FN X3, IMAGE GUIDED CORE BIOPSIES: Dense lymphoid infiltrates, predominantly T-cells, please see microscopic description. No breast parenchyma present. . Note: This case will be forwarded for expert consultation to [facility] and a final diagnosis will follow. This is a preliminary report. MRV 08/12/2024 1021 Local . 01 Electronically signed: . Tenzin Byers MD, Pathologist NPI- [id number] . 01 Gross description: . Received is one formalin-filled container labeled with the patient's name and labeled Rt. breast 12 o'clock 2 cm FN. The specimen consists of three yellow-garcia pieces of soft tissue which range in size from 1.7 x 0.3 x 0.3 cm to 2.5 x 0.3 x 0.2 cm. All fragments are totally submitted in cassette A1. . The specimen was removed on 08/06/2024 at possible 1400 hours per container. Time in formalin not provided. Cold ischemic time cannot be calculated. Total fixation time approximately 13 hours. ([id number]) /JOHN 08/07/2024 0533 Local . 01 Microscopic: . Microscopic examination reveals dense lymphoid infiltrates, composed predominantly of small lymphocytes, focally within hyalinizing fibrosis and infiltrating adjacent adipose tissue. Single cell necrosis or large areas of geographic necrosis not seen. . Large atypical lymphocytes, Hodgkin or Hodgkin-like, not noted. . A panel of immunostains is performed to further characterize the lymphocyte population with the following results: . CD3: T lymphocytes positive, predominant population. CD20: Focal small collections of B lymphocytes positive. Proliferation marker Ki-67: Low, approximately 5-10% of the lymphocytes. CD5: T lymphocytes positive (CD5 expression mirrors CD3 expression. Negative for aberrant coexpression on the B lymphocytes). Cyclin D1: Negative for aberrant coexpression on the B lymphocytes. CD10: Predominantly stromal cells positive and rare possible lymphocyte staining. BCL2: T lymphocytes positive. BCL6: Weak, variable lymphocyte staining. CD21: Focal follicular dendritic cells positive. CD138: Few scattered plasma cells positive. CD43: T lymphocytes positive; negative for aberrant coexpression on the B lymphocytes. CD4: T lymphocytes positive, predominant population. CD8: Smaller subset of T lymphocytes positive. CD2: T lymphocytes positive. CD7: T lymphocytes positive. CD30 Few activated lymphocytes positive, negative for Hodgkin cells. CD56: Few NK-cells positive. GABBY (panepithelial marker): Negative for epithelial cells (this result argues against epithelial malignancy/metastatic carcinoma). NAN in situ hybridization: Negative (with appropriate positive and negative controls). . * This test was developed and the performance characteristics were validated by [facility]. It has not been cleared or approved by the U.S. Food and Drug Administration. . 01 Pathologist provided ICD-10: N63.10 . 01 CPT . 649163, H98140, C38497, [id number] Specimen Comment: A courtesy copy of this report has been sent to [facility] Pathology, Specimen Comment: [phone] Performed at: [address] [address], [place], [place] [id number] MD Cortez Rock MD Phone: [phone]
== END ==
PROVIDERS: PCP Family Medicine; Referring Provider Internal Medicine Medical Oncology; Visit Provider Internal Medicine Medical Oncology
DX: R92.8 Other abnormal and inconclusive findings on diagnostic imaging of breast (principal); N63.12 Unspecified lump in the right breast, upper inner quadrant; R92.341 Mammographic extreme density, right breast
CPT/HCPCS: 19083; 77065

== ENCOUNTER 2024-12-22 15:39 | Emergency (ER) | payer MEDICARE, OTHER, SELFPAY ==
[2024-12-22 15:42] VITALS: BP 186/94; PULSE 89; RESP 16; TEMP 36.8; O2SAT 94; BMI 30.8
[2024-12-22 16:17] LABS: Add Manual Diff / Slide Review NO; Hematocrit 44.9 % (41-53); Hemoglobin 16.1 g/dL (13.5-17.5); Lymphocytes Absolute Auto 1200 /uL (1100-4500); Mean Corpuscular HGB Conc 35.8 % (30-36); Mean Corpuscular Hemoglobin 31.9 PG (26-34); Mean Corpuscular Volume 89.0 fL (80-100); Platelet Count 133 X10^3/uL (150-400)
[2024-12-22 16:28] LABS: Alanine Aminotransferase 58 IU/L (<50); Albumin 4.7 g/dL (3.5-5.0); Albumin Globulin Ratio 1.9 (1.0-2.8); Alkaline Phosphatase 70 U/L (38-126); Blood Urea Nitrogen 27 mg/dL (9-20); Calcium 9.6 mg/dL (8.4-10.2); Carbon Dioxide 24 mmol/L (22-32); Chloride 109 mmol/L (98-107); Estimated Glomerular Filt Rate > 60 mL/min (>60); Globulin 2.5 g/dL (1.7-4.1); Glucose 110 mg/dL (70-99); HEMOLYSIS 21 (0-50); Lipase 78 U/L (23-300); Potassium 4.0 mmol/L (3.4-5.1); Sodium 141 mmol/L (137-145); Total Protein 7.2 g/dL (6.3-8.2)
--- NOTE | 2024-12-22 17:51 | DI.CT.S_ITS ---
PROCEDURE: CT ABDOMEN PELVIS W CON INDICATIONS: LLQ painm worse w. movment TECHNIQUE: After the administration of intravenous contrast, axial sections acquired from the lung bases to the pubic symphysis. Coronal and sagittal reformats were performed. For radiation dose reduction, the following was used: automated exposure control, adjustment of mA and/or kV according to patient size. COMPARISON: [facility], CT, CT ABDOMEN PELVIS W CON, 06/11/2018, 4:23. FINDINGS: Image quality: Diagnostic. Lower Chest: No significant findings. ABDOMEN: Liver: At least moderate hepatic steatosis. Smooth contour. Gallbladder: Contracted without stones. Biliary ducts: No biliary dilation. Pancreas: No ductal dilation. Spleen: Size is within normal limits. Adrenal Glands: No adrenal nodules. Kidneys and Ureters: No hydronephrosis. No solid mass. No complex renal cystic lesion which requires follow up. Punctate nonobstructing left-sided nephrolithiasis. Stomach and Bowel: Normal colonic caliber, without significant wall thickening. Colonic diverticulosis without evidence of diverticulitis. Normal appendix. Peritoneum: No abnormal intraperitoneal fluid. No free air. Ventral Wall: No significant ventral hernia. Abdominal Nodes: No retroperitoneal or mesenteric adenopathy by size criteria. Vessels: Aorta and inferior vena cava are normal in size. PELVIS: Pelvic Organs: Prostate is enlarged. Bladder: No bladder wall thickening, accounting for underdistention. Pelvic Nodes: No enlarged lymph nodes. Miscellaneous: Small indirect left inguinal hernia containing fat. Bones: No aggressive osseous abnormality. IMPRESSION: No acute abnormality. Colonic diverticulosis without evidence of diverticulitis. Normal appendix. No obstructing nephrolithiasis. Hepatic steatosis. In the absence of alcohol use or other confounding factors, elevated LFTs may indicate dmrgxpxtu-dgaqbzwzloh-pyersvooql steatohepatitis (MASH). Dictated by: Angel Hernandez M.D. on 12/22/2024 at 18:36 Approved by: Angel Hernandez M.D. on 12/22/2024 at 18:38
[2024-12-22] MEDS: SODIUM CHLORIDE 0.9% 1,000 ML 1000 ML IV (18:00)
--- NOTE | 2024-12-22 18:21 | ED_ITS ---
HPI - Abdominal Pain <Coleen Dye PA-C - Last Filed: 12/22/24 19:15> General Chief Complaint: Abdominal Pain Stated Complaint: pain in lower left stomach Time Seen by Provider: 12/22/24 15:48 Source: patient Mode of arrival: Ambulatory History of Present Illness HPI narrative: This is a 69-year-old male with a history of chronic lymphocytic leukemia for 2 years, LISBET, kidney stones, obesity, and osteopenia presenting with concern for left low abdominal pain. Patient endorses that he has had some intermittent chronic pains on both the right and left side low down in his belly near his hip for some time however last night in the evening he was doing painting project and using his arms overhead and started having quite uncomfortable left-sided low abdominal pain this seemed to be worse with activity. He describes the pain as 2/10 but says it was very uncomfortable. His notes he has a high pain tolerance. He does take medication as chemotherapy for his CLL and states he takes this daily in the evenings along with the Imodium as the medication tends to give him diarrhea. He took his medication slightly late last night compared to his usual but did note that he had an episode of diarrhea which is pretty atypical for him last night. He has had his normal appetite today and said he slept fine without much pain. 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 He continued to volunteer for a few hours but was persistently having pain especially worse with movement and activity. He denies any urinary symptoms, fevers, chills, flank pain, nausea, vomiting, persistent diarrhea or other symptoms. Related Data Home Medications ?Medication ?Instructions ?Recorded ?Confirmed trazodone 50 mg tablet 50 mg PO BEDTIME PRN Pain (S essie 12/31/19 06/12/24 Score 1-3) ResMed AirCurve 10 07/27/21 06/12/24 venetoclax 100 mg tablet 400 mg PO DAILY 06/12/24 (Venclexta) Previous Rx's ?Medication ?Instructions ?Recorded azithromycin 250 mg tablet See Rx Instructions PO .COM PLEX #6 06/12/24 tabs Allergies Allergy/AdvReac Type Severity Reaction Status Date / Time house dust Allergy Mild sneezing, Verified 12/22/24 15:42 runny nose hay Allergy Mild sneezing, Uncoded 12/22/24 15:42 runny nose Review of Systems <Coleen Dye PA-C - Last Filed: 12/22/24 19:15> Review of Systems Narrative: See HPI Patient History <Coleen Dye PA-C - Last Filed: 12/22/24 19:15> Medical History Complex sleep apnea syndrome Insomnia, psychophysiological Excessive daytime sleepiness Obstructive sleep apnea, adult Kidney stone Arm fracture, right (~1985) Knee pain (04/2012) Osteopenia Squamous cell carcinoma CLL (chronic lymphocytic leukemia) (~05/2010) Low testosterone Colon polyps Anxiety Allergic rhinitis Surgical History Hx of squamous cell carcinoma excision Hx of colonoscopy with polypectomy (07/2013) Family History Father Cancer Hypertension Depression Anxiety Mother CLL (chronic lymphocytic leukemia) Loud snoring Restless leg Hypertension Family/Other Sleep apnea Restless leg Social History household members: spouse Smoking Status: Never smoker alcohol intake: current Smoking Status: Never smoker alcohol intake frequency: holidays/special occasions only Alcohol type: beer Exam <Coleen Dye PA-C - Last Filed: 12/22/24 19:15> Narrative Exam Narrative: GENERAL: [69] year old patient appears stated age. Well-developed patient, in mild distress. Generally well-appearing. HEAD: Atraumatic. Normocephalic. EYES: Pupils equal round and reactive. Extraocular motions intact. No scleral icterus. No injection or drainage. ENT: Nose without bleeding, purulent drainage. Airway patent. NECK: Trachea midline. Non tender CARDIOVASCULAR: Regular rate and rhythm without murmurs, gallops, or rubs. RESPIRATORY: Clear to auscultation. Breath sounds equal bilaterally. No wheezes, rales, or rhonchi. GASTROINTESTINAL: Abdomen soft, there is mild left lower quadrant tenderness, very slight right lower quadrant tenderness/periumbilical tenderness on the right side and just inferior to the umbilicus. Otherwise non-tender, nondistended. Negative Rovsing, negative Otto sign negative obturator sign negative heel tap. Negative McBurney's point tenderness. There is very slight left low flank tenderness most notable with percussion. EXTREMITIES: No edema or joint tenderness. BACK: Nontender without deformity or crepitance. Slight low left flank tenderness. NEURO: AOx3. SKIN: No rash or erythema of visible areas Initial Vital Signs Initial Vital Signs: Vital Signs Temperature 98.2 F 12/22/24 15:42 Pulse Rate 89 12/22/24 15:42 Respiratory Rate 16 12/22/24 15:42 Blood Pressure 186/94 H 12/22/24 15:42 Pulse Oximetry 94 12/22/24 15:42 Oxygen Delivery Method Room Air 12/22/24 15:42 <Brit Briceño DO - Last Filed: 12/23/24 01:11> Initial Vital Signs Initial Vital Signs: Vital Signs Temperature 98.2 F 12/22/24 15:42 Pulse Rate 89 12/22/24 15:42 Respiratory Rate 16 12/22/24 15:42 Blood Pressure 186/94 H 12/22/24 15:42 Pulse Oximetry 94 12/22/24 15:42 Oxygen Delivery Method Room Air 12/22/24 15:42 Course <Coleen Dye PA-C - Last Filed: 12/22/24 19:15> Orders Ordered: ED Orders 12/22/24 17:51 CT abdomen pelvis w con Stat Discontinued Medications Sodium Chloride (Normal Saline 0.9%) 1,000 mls @ 1,000 mls/hr IV BOLUS ONE Stop: 12/22/24 18:51 Last Infusion: 12/22/24 19:12 Dose: Infused Documented By: Admin: 12/22/24 18:00 Dose: 1,000 mls/hr Documented By: AMBROSE Ondansetron HCl (Ondansetron 4 Mg/2 Ml Inj) 4 mg IV NOW PRN PRN Reason: Nausea And Vomiting Ondansetron HCl (Ondansetron 4 Mg Odt) 4 mg PO NOW PRN PRN Reason: Nausea And Vomiting Vital Signs Vital signs: Vital Signs - 8 hr 12/22/24 19:13 Pulse Rate 62 Respiratory Rate 16 Blood Pressure 143/84 H Pulse Oximetry 99 Oxygen Delivery Method Room Air <Brit Briceño DO - Last Filed: 12/23/24 01:11> Orders Ordered: ED Orders 12/22/24 17:51 CT abdomen pelvis w con Stat Discontinued Medications Sodium Chloride (Normal Saline 0.9%) 1,000 mls @ 1,000 mls/hr IV BOLUS ONE Stop: 12/22/24 18:51 Last Infusion: 12/22/24 19:12 Dose: Infused Documented By: Admin: 12/22/24 18:00 Dose: 1,000 mls/hr Documented By: AMBROSE Ondansetron HCl (Ondansetron 4 Mg/2 Ml Inj) 4 mg IV NOW PRN PRN Reason: Nausea And Vomiting Ondansetron HCl (Ondansetron 4 Mg Odt) 4 mg PO NOW PRN PRN Reason: Nausea And Vomiting Vital Signs Vital signs: Vital Signs - 8 hr 12/22/24 19:13 Pulse Rate 62 Respiratory Rate 16 Blood Pressure 143/84 H Pulse Oximetry 99 Oxygen Delivery Method Room Air MDM - Abdominal Pain <Coleen Dye PA-C - Last Filed: 12/22/24 19:15> Differential Diagnosis Differential diagnosis: Likely abdominal pain, acute appendicitis, calculus of kidney, diverticulitis and other (Hernia) Lab Data Attestation: I reviewed the patient's lab results. 12/22/24 16:00 12/22/24 16:00 Labs: Lab Results 12/22/24 Range/Units 16:00 WBC 4.4 L (4.5-11.0) X10^3/uL RBC 5.04 (4.5-5.9) X10^6/uL Hgb 16.1 (13.5-17.5) g/dL Hct 44.9 (41-53) % MCV 89.0 (80-100) fL MCH 31.9 (26-34) PG MCHC 35.8 (30-36) % RDW 13.8 (11.6-14.8) % Plt Count 133 L (150-400) X10^3/uL Neut % (Auto) 58.7 (50-75) % Lymph % (Auto) 28.2 (25-40) % [place] % (Auto) 12.1 (3-14) % Eos % (Auto) 0.1 L (2-4) % Baso % (Auto) 0.9 (0-2) % Neut # (Auto) 2600 (5454-4054) /uL Lymph # (Auto) 1200 (6110-9891) /uL [place] # (Auto) 500 (0-900) /uL Eos # (Auto) 0 (0-450) /uL Baso # (Auto) 0 (0-100) /uL Sodium 141 (137-145) mmol/L Potassium 4.0 (3.4-5.1) mmol/L Chloride 109 H (98-107) mmol/L Carbon Dioxide 24 (22-32) mmol/L BUN 27 H (9-20) mg/dL Creatinine 1.21 (0.66-1.25) mg/dL Estimated GFR > 60 (>60) mL/min BUN/Creatinine Ratio 22.3 H (6-22) Glucose 110 H (70-99) mg/dL Calcium 9.6 (8.4-10.2) mg/dL Total Bilirubin 0.8 (0.2-1.3) mg/dL AST 42 (17-59) IU/L ALT 58 H (<50) IU/L Alkaline Phosphatase 70 (38-126) U/L Total Protein 7.2 (6.3-8.2) g/dL Albumin 4.7 (3.5-5.0) g/dL Globulin 2.5 (1.7-4.1) g/dL Albumin/Globulin Ratio 1.9 (1.0-2.8) Lipase 78 (23-300) U/L Point of care testing: Urine Dip Bedside Urine Glucose Negative Bedside Urine Bilirubin - Negative Bedside Urine Ketone - Negative Urine Specific [place] 1.025 Bedside Urine Occult Blood - Negative Bedside Urine pH 5.5 Bedside Urine Protein - Negative Bedside Urine Urobilinogen - Negative Bedside Urine Nitrite - Negative Bedside Urine Leukocytes - Negative Esterase Imaging Data CT scan - abdomen/pelvis: My Impression: Agree with Radiology interpretation Radiologist's Impression: [address] [address] [address] Scan Report Signed Patient: Morteza Ramírez MR#: [id number] : 1955 Acct:[id number] Age/Sex: 69 / M Date of Service: 12/22/24 Loc: ED Accession Number: [id number] Procedure: CT abdomen pelvis w con Ordering Provider: Coleen Dye PA-C PROCEDURE: CT ABDOMEN PELVIS W CON INDICATIONS: LLQ painm worse w. movment TECHNIQUE: After the administration of intravenous contrast, axial sections acquired from the lung bases to the pubic symphysis. Coronal and sagittal reformats were performed. For radiation dose reduction, the following was used: automated exposure control, adjustment of mA and/or kV according to patient size. COMPARISON: [facility], CT, CT ABDOMEN PELVIS W CON, 06/11/2018, 4:23. FINDINGS: Image quality: Diagnostic. Lower Chest: No significant findings. ABDOMEN: Liver: At least moderate hepatic steatosis. Smooth contour. Gallbladder: Contracted without stones. Biliary ducts: No biliary dilation. Pancreas: No ductal dilation. Spleen: Size is within normal limits. Adrenal Glands: No adrenal nodules. Kidneys and Ureters: No hydronephrosis. No solid mass. No complex renal cystic lesion which requires follow up. Punctate nonobstructing left-sided nephrolithiasis. Stomach and Bowel: Normal colonic caliber, without significant wall thickening. Colonic diverticulosis without evidence of diverticulitis. Normal appendix. Peritoneum: No abnormal intraperitoneal fluid. No free air. Ventral Wall: No significant ventral hernia. Abdominal Nodes: No retroperitoneal or mesenteric adenopathy by size criteria. Vessels: Aorta and inferior vena cava are normal in size. PELVIS: Pelvic Organs: Prostate is enlarged. Bladder: No bladder wall thickening, accounting for underdistention. Pelvic Nodes: No enlarged lymph nodes. Miscellaneous: Small indirect left inguinal hernia containing fat. Bones: No aggressive osseous abnormality. IMPRESSION: No acute abnormality. Colonic diverticulosis without evidence of diverticulitis. Normal appendix. No obstructing nephrolithiasis. Hepatic steatosis. In the absence of alcohol use or other confounding factors, elevated LFTs may indicate [id number] steatohepatitis (MASH). Dictated by: Angel Hernandez M.D. on 12/22/2024 at 18:36 Approved by: Angel Hernandez M.D. on 12/22/2024 at 18:38 MDM Narrative Medical decision making narrative: This is a 69-year-old male with a history of CLL, osteopenia, obesity, kidney stone and LISBET presenting with concern for left low abdominal pain since yesterday evening worse with activity especially lifting and movements. This could possibly represent an atypical appendicitis presentation however this seems unlikely based on his exam. Diverticulitis is also a possibility, or colitis/enteritis given he did have diarrhea last night. Patient's urine is evaluated and labs including CBC CMP and lipase. Blood labs and urine are unremarkable and do not suggest acute infectious process or UTI. However given his abdominal exam with tenderness and acute pain since yesterday evening a CT scan abdomen pelvis is obtained with contrast for further evaluation. CT does show a left indirect hernia that is small and fat containing. Suspect that this is the cause of the patient's new left low abdominal discomfort. Presence of diverticulosis without diverticulitis also noted on CT. Counseled to avoid any lifting or activities that cause increased pain, monitor for new or worsening symptoms and follow up as an outpatient with General surgery for further recommendations. Return precautions provided, follow-up plan discussed, all questions answered. <Brit Briceño, DO - Last Filed: 12/23/24 01:11> Lab Data Labs: Lab Results 12/22/24 Range/Units 16:00 WBC 4.4 L (4.5-11.0) X10^3/uL RBC 5.04 (4.5-5.9) X10^6/uL Hgb 16.1 (13.5-17.5) g/dL Hct 44.9 (41-53) % MCV 89.0 (80-100) fL MCH 31.9 (26-34) PG MCHC 35.8 (30-36) % RDW 13.8 (11.6-14.8) % Plt Count 133 L (150-400) X10^3/uL Neut % (Auto) 58.7 (50-75) % Lymph % (Auto) 28.2 (25-40) % [place] % (Auto) 12.1 (3-14) % Eos % (Auto) 0.1 L (2-4) % Baso % (Auto) 0.9 (0-2) % Neut # (Auto) 2600 (3538-1358) /uL Lymph # (Auto) 1200 (5465-7332) /uL [place] # (Auto) 500 (0-900) /uL Eos # (Auto) 0 (0-450) /uL Baso # (Auto) 0 (0-100) /uL Sodium 141 (137-145) mmol/L Potassium 4.0 (3.4-5.1) mmol/L Chloride 109 H (98-107) mmol/L Carbon Dioxide 24 (22-32) mmol/L BUN 27 H (9-20) mg/dL Creatinine 1.21 (0.66-1.25) mg/dL Estimated GFR > 60 (>60) mL/min BUN/Creatinine Ratio 22.3 H (6-22) Glucose 110 H (70-99) mg/dL Calcium 9.6 (8.4-10.2) mg/dL Total Bilirubin 0.8 (0.2-1.3) mg/dL AST 42 (17-59) IU/L ALT 58 H (<50) IU/L Alkaline Phosphatase 70 (38-126) U/L Total Protein 7.2 (6.3-8.2) g/dL Albumin 4.7 (3.5-5.0) g/dL Globulin 2.5 (1.7-4.1) g/dL Albumin/Globulin Ratio 1.9 (1.0-2.8) Lipase 78 (23-300) U/L Point of care testing: Urine Dip Bedside Urine Glucose Negative Bedside Urine Bilirubin - Negative Bedside Urine Ketone - Negative Urine Specific [place] 1.025 Bedside Urine Occult Blood - Negative Bedside Urine pH 5.5 Bedside Urine Protein - Negative Bedside Urine Urobilinogen - Negative Bedside Urine Nitrite - Negative Bedside Urine Leukocytes - Negative Esterase Discharge Plan Departure Patient Disposition: Home Clinical Impression: Indirect left inguinal hernia, Abdominal pain, acute, left lower quadrant Activity Restrictions/Additional Instructions: *You have been diagnosed with [indirect left fat containing hernia] *What to do: *Please continue to take your regular medications as directed. [ ] New medication prescriptions sent to your pharmacy: [ ] [ ] New medication written as a paper prescription [ X] No new medications given *Please follow up with your primary care provider in 2-3 days, call for an appointment. Let them know you were seen in the Emergency Department and that we ask that you be seen in follow up. We will electronically transmit a record of today's note if your PCP is in our system. You came in today with concern for left lower abdominal pain last night worse with movement and lifting. Your labs looked good today no evidence of UTI and your blood labs also looked fine. We did do a CT scan given your symptoms and pain with some mild tenderness on exam. This shows you have a small fat containing left inguinal hernia, which I suspect is likely the cause of your pain. You should avoid any heavy lifting or activities that exacerbate the pain you have been having. Monitor carefully for new or worsening symptoms such as change in stool habits, increased pain or other symptoms of concern and seek re-evaluation if these develop otherwise follow up with PCP and general surgery as an outpatient. You can talk to General surgery about next steps and recommendations. I hope that you feel better soon. *If you do not have a primary care provider please contact the [facility] Resource line at [phone]. They will ask some questions about your medical history and help get you set up with a doctor in the community. *Return to Emergency Department if you should have any new, worsening or concerning symptoms, such as [fever greater than 101 F, shaking chills, worsening pain, persistent vomiting or other bothersome symptoms] Prescriptions: No Action Venclexta 100 mg tablet 400 mg PO DAILY azithromycin 250 mg tablet See Rx Instructions PO .COMPLEX Qty: 6 0RF Rx Instructions: For 250 mg dose pack: take 500 mg today (day 1), then 250 mg for 4 days (days 2-5) PO trazodone 50 mg tablet 50 mg PO BEDTIME PRN (Reason: Pain (Scale Score 1-3)) (DME) ResMed AirCurve 10 See Rx Instructions .Route .MEDSUPPLY Rx Instructions: BIPAP IPAP: 16 EPAP: 10 PS: 4cmH2O DME: PHM Referrals: Carrie Garduno DO [Primary Care Provider, Family Practice] Jose Antonio Bhatia MD [Physician, General Surgery] Clinical Impression: Indirect left inguinal hernia Stand Alone Forms: Patient Portal/API ED Sign-out <Brit Briceño DO - Last Filed: 12/23/24 01:11> Cosign ED Attending Cosaidenature Attestation: I was immediately available in the department for consultation.
[2024-12-22 19:13] VITALS: BP 143/84; PULSE 62; RESP 16; O2SAT 99
== END 2024-12-22 19:17 | disposition home or self-care (01) ==
PROVIDERS: Family Medicine; Emergency Provider Student in an Organized Health Care Education/Training Program; PCP Family Medicine
DX: K40.90 Unilateral inguinal hernia, without obstruction or gangrene, not specified as recurrent (principal); R10.32 Left lower quadrant pain
CPT/HCPCS: 36415; 74177; 80053; 81003; 83690; 85025; 96360; 99284; Q9967